=== PATIENT | female | born 1935 | race Caucasian/White ===

== ENCOUNTER → 2019-04-12 | Outpatient (CLI) | payer MEDICARE ==
--- NOTE | 2019-04-12 20:44 | CONS ---
CONSULTATION REASON FOR EVALUATION: Feeling sleepy all the time and forgetful. This is an 83-year-old female patient who has been noted to be progressively more forgetful and she has been falling sleep frequently and for that reason, a sleep apnea evaluation was requested. She is accompanied today by her . Her daughter Stacey Briones works for [employer]. Her son is also a physician on the [place] of the [facility]. The patient reports snoring. There has been some cognitive impairment essentially in the form of memory loss. She is also falling asleep easily despite averaging around 8-9 hours of sleep. Typically, the patient was bed around 11:30 pm and wakes up between 8 and 8:30 am in the morning. When she wakes up, she is a bit tired and sleepy and she can fall asleep and take naps if she is allowed to do so. No witnessed apneas. She denies waking up gasping for air or choking sensation. No nocturia. No grinding of the teeth. No sleepwalking or sleep talking. No parasomnias. No sleep paralysis, hallucinations or cataplexy. No history of head trauma. No history of meningitis. There is positive history of depression. No recent weight gain or weight loss. The patient looks quite thin and she carries a BMI of 19.7. Nevertheless, on evaluation, she has an overbite with a Mallampati class 4. PAST MEDICAL HISTORY: 1. Cognitive impairment. 2. Memory loss. 3. Depression. 4. Hyperlipidemia. 5. Hypertension. 6. Cataract. PAST SURGICAL HISTORY: Hysterectomy, cholecystectomy, wrist surgery, shoulder surgery and elbow surgery for dislocated elbow. DRUG ALLERGIES: Drug allergies are not known. SHE HAS BEEN ALLERGIC TO FABRIC SOFTENERS. SOCIAL HISTORY: The patient is a nonsmoker. No history of alcohol. No history of IV drugs. She lives with her in [facility]. MEDICATION LIST: Includes Fosamax 70 mg once weekly. Aspirin 81 mg p.o. daily. Lipitor 20 mg p.o. daily, calcium with vitamin D one tablet a day. Centrum Silver. Metoprolol 25 mg p.o. daily, nitroglycerin 0.4 mg on a p.r.n. basis and vitamin D3 1000 units daily. SOCIAL HISTORY: The patient is a nonsmoker. No history of alcohol. No history of IV drugs. REVIEW OF SYSTEMS: 14-point review of system was done. Positive findings are mentioned above in the history of present illness. The patient is a loud snorer. She does not have any dreams, hallucinations or sleep paralysis. No history of any cataplexy. She wakes up a few times in the middle of the night and she is able to go back to sleep without any major difficulty. She prefers to sleep on her side. She does take naps. Typically the nap is around half to 1 hour at around 3 to 4 pm. She does not have any vivid dreams. She drinks caffeine in moderation. No recent weight gain or weight loss. PHYSICAL EXAMINATION: BP is 131/84, pulse 60, respirations 16, temperature 98.1. Saturation 97% on room air. Height is 5 feet, 2 inches, weight is 108. BMI is 19.7, neck size 12. Her current Casey score is at 10. General appearance calm comfortable. HEENT atraumatic normocephalic. Neck is supple. No JVD. No goiter or neck masses. There is an overbite with a Mallampati class 4. LUNGS: Clear to auscultation. HEART sounds are regular rate and rhythm. Normal S1, S2. No S3, S4. No murmurs. ABDOMEN is soft, nontender. No organomegaly. EXTREMITIES: No edema. No cyanosis or clubbing. NEUROLOGICALLY: The patient is alert x3. There is some memory impairment. No signs of any dementia on today's evaluation. PSYCHIATRIC history is positive for depression. SKIN negative for wounds or ulceration. IMPRESSION: 1. Hypersomnia with an Casey score of 10. The patient also has some cognitive and memory impairment. Possibility of obstructive sleep apnea is being entertained as the patient has somewhat anatomic features to suggest that we including an overbite and significant crowded posterior pharynx with a Mallampati class 4. Never the less, she is a thin woman who carries a BMI of 19.7. 2. Snoring. 3. Memory loss. 4. Depression. 5. Hyperlipidemia. 6. Hypertension. PLAN: 1. I had a lengthy discussion with the patient. 2. She will be asked to sleep on her side with the head of bed elevated. 3. With a polysomnogram to rule out any sleep breathing disorder that may be contributing to this patient's tiredness, fatigue and sleepiness and cognitive impairment. 4. We will continue to follow. MMODL / IJN: [id number] /
== END | disposition home or self-care (01) ==
LOC: SLEEP 14:20
PROVIDERS: ATTEND Internal Medicine Critical Care Medicine
DX: G47.10 Hypersomnia, unspecified (principal); G31.84 Mild cognitive impairment of uncertain or unknown etiology; R06.83 Snoring; F32.9 Major depressive disorder, single episode, unspecified; E78.5 Hyperlipidemia, unspecified; I10 Essential (primary) hypertension; Z79.82 Long term (current) use of aspirin; Z79.899 Other long term (current) drug therapy
CPT/HCPCS: 99211

== ENCOUNTER → 2019-08-09 | Outpatient (CLI) | payer MEDICARE ==
--- NOTE | 2019-08-09 16:06 | PN ---
PROGRESS NOTE This is an 83-year-old female patient who is seeing me back in followup regarding her sleep apnea. The patient was diagnosed having obstructive sleep apnea with an AHI of 16.7, worse during REM sleep with an AHI of 40.5, and the patient was treated with a CPAP pressure of 7 cm of water. She is using the AirFit P10 nose pillow, extra-small. On today's evaluation the patient is feeling great. Her tells me that her sleep quality has improved, snoring has been eliminated, and she feels much more awake and alert during the day. Her consciousness and her memory have also improved. She is much more alert and attentive during the day. I checked the compliance data on her CPAP machine. The patient is at a pressure of 7 cm of water. She is averaging around 8.3 hours of CPAP use per night. Her leak is 11 L/minute and her AHI is down to 4.7. She is being successfully treated and she has no complaints. Her [place] score is down to 5. REVIEW OF SYSTEMS: Fourteen-point review of systems was done. Positive findings were all mentioned above in the history of present illness. In general, the patient's hypersomnia tiredness and fatigue have improved. PHYSICAL EXAMINATION: HER CURRENT VITALS: BP 142/66, pulse 56, respirations 16, temperature 98.0. Weight is 109. Saturation 99% on room air. GENERAL APPEARANCE: Calm, comfortable. HEAD: Atraumatic, normocephalic. NECK: Supple. No JVD. No goiter or neck masses. LUNGS: Clear to auscultation. HEART: Heart sounds are regular rate and rhythm. Normal S1, S2. No S3, S4. No murmurs. ABDOMEN: Soft, nontender. No organomegaly. EXTREMITIES: No edema. No cyanosis or clubbing. NEUROLOGIC: Alert and oriented x3. No focal neurological deficit. PSYCHIATRIC: Negative for anxiety or depression for now. IMPRESSION: 1. Symptomatic obstructive sleep apnea with apnea/hypopnea index of 16, worse during REM. The patient is successfully treated with a CPAP pressure of 7. 2. Hypersomnia, improved with CPAP therapy. Current [place] score is down to 5. 3. Cognitive impairment/memory impairment, improved. 4. Depression. 5. Hyperlipidemia. 6. Hypertension. PLAN: 1. Encourage using the CPAP at the same level of pressure, which is 7 cm of water. 2. Continue using the AirFit P10 nose pillows. 3. Sleep hygiene measures are appropriate. 4. The patient is being successfully treated. We will continue to follow up and will make further recommendations based on her progress. Her treatment is successful for now. See me back in a year's time in followup. MMODL / IJN: [id number] /
== END ==
LOC: SLEEP 13:36
PROVIDERS: ATTEND Internal Medicine Critical Care Medicine
DX: G47.33 Obstructive sleep apnea (adult) (pediatric) (principal); F32.9 Major depressive disorder, single episode, unspecified; E78.5 Hyperlipidemia, unspecified; I10 Essential (primary) hypertension; G31.84 Mild cognitive impairment of uncertain or unknown etiology

== ENCOUNTER → 2019-08-30 | Outpatient (CLI) | payer MEDICARE ==
--- NOTE | 2019-08-30 13:23 | US ---
EXAMINATION TYPE: US axilla RT DATE OF EXAM: 08/30/2019 COMPARISON: NONE CLINICAL HISTORY: R22.31 AXILLARY MASS. Palpable lump right axilla x 5-10 yrs TECHNIQUE/FINDINGS: Targeted grayscale and color ultrasound were performed at the area of the palpable abnormality within the right axilla. In area of pt's palpable within right axilla there is a cystic lesion measuring 1.8 x 0.5 x 0.9 cm. This is avascular and well-circumscribed. Increased through transmission is seen confirming cystic n ature. This is seen just deep to the skin surface and is in the subcutaneous fat, adjacent to muscula ture. IMPRESSION: Elongated subcutaneous cystic lesion appears simple and likely benign. This has been pre sent for 5-10 years per patient history. Subcutaneous sebaceous cyst is possible. If there is clinica l interval growth repeat imaging could be performed.
--- NOTE | 2019-08-30 13:55 | MM ---
Reason for exam: screening (asymptomatic). Last mammogram was performed 1 year and 6 months ago. History: Patient is postmenopausal and history of other cancer. Family history of breast cancer in daughter. Physical Findings: A clinical breast exam by your physician is recommended on an annual basis and results should be correlated with mammographic findings. MG 3D Screening Mammo W/Cad Bilateral CC and MLO view(s) were taken. Prior study comparison: February 16, 2018, mammogram. September 02, 2016, mammogram. The breast tissue is extremely dense which could obscure a lesion on mammography. Benign appearing calcifications in the left breast. Subtle right central upper right middle depth architectural distortion. ASSESSMENT: Incomplete: need additional imaging evaluation, BI-RAD 0 RECOMMENDATION: Special view mammogram of the right breast. If lesion persists on supplemental views, image directed ultrasound is recommended. [facility] will attempt to contact patient to return for supplemental views and ultrasound if indicated.
--- NOTE | 2019-08-31 07:55 | MM ---
Reason for exam: additional evaluation requested from abnormal screening. History: Patient is postmenopausal and history of other cancer. Family history of breast cancer in daughter. Physical Findings: Nurse did not find any significant physical abnormalities on exam. MG 3D Work Up W/Cad RT Spot compression CC, spot compression MLO, and ML view(s) were taken of the right breast. Prior study comparison: February 16, 2018, mammogram. September 02, 2016, mammogram. The breast tissue is extremely dense which could obscure a lesion on mammography. There are stable benign appearing left calcifications. 6mm right focal asymmetry 5-6cm from nipple of the central, slightly medial upper right breast. Persists on additional images. These results were verbally communicated with the patient and result sheet given to the patient on 08/30/19. ASSESSMENT: Incomplete: need additional imaging evaluation, BI-RAD 0 RECOMMENDATION: Ultrasound of the right breast.
--- NOTE | 2019-08-31 07:56 | USB ---
Reason for exam: additional evaluation requested from abnormal screening. History: Patient is postmenopausal and history of other cancer. Family history of breast cancer in daughter. US Breast Workup Limited RT Right limited breast ultrasound including focal area of concern, retroareolar and axilla demonstrates no cystic or solid lesion seen. No sonographic correlate. Extremely dense tissue throughout. No solid or cystic mass. These results were verbally communicated with the patient and result sheet given to the patient on 08/30/19. ASSESSMENT: Probably benign, BI-RAD 3 RECOMMENDATION: Follow-up diagnostic mammogram of the right breast in 6 months. MRI or contrast enhanced mammogram would additionally be recommended.
== END | disposition home or self-care (01) ==
LOC: RADUSWWP 12:55
PROVIDERS: ATTEND Internal Medicine
DX: Z12.31 Encounter for screening mammogram for malignant neoplasm of breast (principal); R92.8 Other abnormal and inconclusive findings on diagnostic imaging of breast; R22.31 Localized swelling, mass and lump, right upper limb
CPT/HCPCS: 77067; 77065; 77063; 76882; 76642; G0279; 77061

== ENCOUNTER → 2020-09-18 | Outpatient (CLI) | payer MEDICARE ==
--- NOTE | 2020-09-18 16:31 | PN ---
PROGRESS NOTE This patient has obstructive sleep apnea with an AHI of 16.7, and she is coming in for an annual check. She continues to be on CPAP pressure of 7 cm of water. Treatment is still successful. The patient has been averaging around 7.8 hours of CPAP use per night and based on a 30 day compliancy, her CPAP use for more than 4 hours is above 95%. She is still using AirFit 10 extra-small nasal pillows. Her AHI while on treatment is down to 2.6 and her leak is in order of 11 L/minute. No new onset medical problems and comorbidities and her weight is up by few pounds in order of 6 pounds since last evaluation. No other complaints. Treatment continues to be quite successful. Her memory and concentration and her daily alertness is all improved. REVIEW OF SYSTEMS: Fourteen-point review of system was done and positive findings are mentioned in history of present illness. PHYSICAL EXAMINATION: BP is 145/79, pulse 62, respirations 16, temperature 97.5 saturation 95% on room air. Height is 5, 2, weight is 115 and BMI is 20.8. GENERAL APPEARANCE: Calm, comfortable. HEAD: Atraumatic, normocephalic. NECK: Supple. No JVD. No goiter or neck mass. LUNGS: Diminished, otherwise clear. HEART: Heart sounds are regular rate and rhythm, normal S1, S2. No S3, S4. No murmurs. ABDOMEN: Soft, nontender, no organomegaly. EXTREMITIES: No edema, no cyanosis or clubbing. NEUROLOGIC: Awake and alert, there is no focal neurological deficit. IMPRESSION: 1. MINH, moderate severity. AHI of 16, currently successfully treated with a CPAP pressure of 7 cm of water. The patient is extremely compliant. 2. Hypersomnia, recovered. 3. Depression. 4. Hyperlipidemia. 5. Hypertension. PLAN: 1. No need for adjustments. Keep the CPAP pressure at 7 cm of water. 2. Keep the same mask interface which is an AirFit P10 extra-small nasal pillows. 3. Treatment is successful. Encourage weight loss. Implement good sleep hygiene measures. Will see me back in a year's time in followup, earlier if needed. For now, her condition is stable. MMODL / IJN: [id number] /
== END | disposition home or self-care (01) ==
LOC: SLEEP 13:53
PROVIDERS: ATTEND Internal Medicine Critical Care Medicine
DX: G47.33 Obstructive sleep apnea (adult) (pediatric) (principal); F32.9 Major depressive disorder, single episode, unspecified; E78.5 Hyperlipidemia, unspecified; I10 Essential (primary) hypertension; Z99.89 Dependence on other enabling machines and devices

== ENCOUNTER → 2021-10-29 | Outpatient (CLI) | payer MEDICARE ==
--- NOTE | 2021-10-29 15:22 | PN ---
PROGRESS NOTE This is an 86-year-old female patient with known history of obstructive sleep apnea. The patient is coming in for an annual check. Her baseline AHI is 16.7. I note that the patient's compliance has gone down; and over the past 30 days the patient has utilized her machine half of the time and she has achieved around 7 hours of sleep on CPAP on average. The reason for the lower compliance is the soreness in her nostril that has been caused by the AirFit extra-small nasal pillows. The patient is wondering if there is any other alternative than the AirFit P10. Otherwise she is doing well. While on treatment, the patient's leak is minimal at around 22 L and she has averaged around 7 hours and her AHI is down to 2.0. No new-onset medical problems or comorbidities. She is committed and she wants to go back to using her CPAP therapy. No cough or sputum production. No chest pain, shortness of breath. No major hypersomnia or sleepiness on the days that the patient uses her machine. REVIEW OF SYSTEMS: Fourteen-point review of systems was done. Positive findings are all mentioned in history of present illness. PHYSICAL EXAMINATION: BP is 155/67, pulse 62, respirations 16, temperature 97.8, saturation 99% on room air. Height is 5 feet 2 inches, weight is 118. BMI is 21.5. GENERAL APPEARANCE: Calm, comfortable. No acute distress. HEAD: Atraumatic, normocephalic. Neck is supple. No JVD. No goiter or neck masses. Mallampati class IV. LUNGS: Clear to auscultation. Heart sounds are regular rate and rhythm. Normal S1, S2. No S3, S4. No murmurs. ABDOMEN: Soft, nontender. EXTREMITIES: No edema. No cyanosis or clubbing. NEUROLOGIC: Awake and alert. There is no focal neurological deficit. PSYCHIATRIC: Negative for anxiety or depression. IMPRESSION: 1. Obstructive sleep apnea; AHI of 16.7, currently on CPAP therapy at a pressure of 7 cm of water. 2. Poor compliancy on CPAP due to irritation and soreness created by the nasal pillows. 3. Chronic hypersomnia. 4. Depression. 5. Hyperlipidemia. 6. Hypertension. PLAN: Continue CPAP therapy at the same level of pressure, which is 7 cm of water, and offer the patient an AirFit N30i nasal mask. This was used in the office and it was fitted and the patient achieved adequate comfort. She feels that she is going to be able to use this new mask over her older nasal pillow. I am hoping that with this mask change the patient will be able to become more compliant. I will see her back in a year's time in followup. Prescriptions will be given out if she decides that she wants to continue with the AirFit N30i small-sized nasal mask. Otherwise, no other new complaints for now. MMODL / IJN: [id number] /
== END ==
LOC: SLEEP 13:21
PROVIDERS: ATTEND Internal Medicine Critical Care Medicine
DX: G47.33 Obstructive sleep apnea (adult) (pediatric) (principal); F32.A Depression, unspecified; E78.5 Hyperlipidemia, unspecified; I10 Essential (primary) hypertension; Z99.89 Dependence on other enabling machines and devices; Z88.2 Allergy status to sulfonamides

== ENCOUNTER 2021-11-14 03:34 | Emergency (ER) | payer MEDICARE ==
--- NOTE | 2021-11-14 03:46 | ED ---
Fall HPI - General Stated Complaint: Fall Time Seen by Provider: 11/14/21 03:44 Source: RN notes reviewed, old records reviewed, Caregiver Mode of arrival: EMS Limitations: no limitations - History of Present Illness Initial Comments: This is an 86-year-old female presents here today after a fall. Weakness fall probably syncopal and fall. Patient has had similar event just last week and states at times when she is moving or walking she feels lightheaded and dizzy. No chest pain or shortness of breath no current symptoms now aside from back pain. Patient was unable to get up on her own at home her daughter came over and came over also were unable to get her up and patient presents to ER by EMS. Currently no complaints of anything aside from pain in her MD Complaint: fall -: hour(s) (3) Fall From: standing When Fall Occurred: 1-3 hours [employer]STE WORK[employer] Fall Witnessed: yes, by family Place Fall Occurred: home Loss of Consciousness: none Prolonged Down Time?: no Symptoms Prior to Fall: none Location: back Severity: moderate Severity scale (1-10): 4 Quality: sharp Context: tripped/slipped, other (May have passed out) Associated Symptoms: denies - Related Data Home Medications Medication Instructions Recorded Confirmed No Known Home Medications 10/25/14 10/25/14 Allergies Allergy/AdvReac Type Severity Reaction Status Date / Time Sulfa (Sulfonamide Allergy Unknown Verified 10/25/14 17:09 Antibiotics) Review of Systems ROS Statement: Those systems with pertinent positive or pertinent negative responses have been documented in the HPI. ROS Other: All systems not noted in ROS Statement are negative. Past Medical History Past Medical History: COPD History of Any Multi-Drug Resistant Organisms: None Reported Past Surgical History: Appendectomy, Cholecystectomy, Hysterectomy Past Anesthesia/Blood Transfusion Reactions: No Reported Reaction Past Psychological History: No Psychological Hx Reported Past Alcohol Use History: None Reported Past Drug Use History: None Reported - Past Family History Father Family Medical History: Cancer, Myocardial Infarction ([place]) Mother Family Medical History: Osteoarthritis (OA) General Exam General appearance: alert, in no apparent distress Head exam: Present: atraumatic, normocephalic, normal inspection Eye exam: Present: normal appearance, PERRL, EOMI. Absent: scleral icterus, conjunctival injection, periorbital swelling ENT exam: Present: normal exam, mucous membranes moist Neck exam: Present: normal inspection. Absent: tenderness, meningismus, lymphadenopathy Respiratory exam: Present: normal lung sounds bilaterally. Absent: respiratory distress, wheezes, rales, rhonchi, stridor Cardiovascular Exam: Present: regular rate, normal rhythm, normal heart sounds. Absent: systolic murmur, diastolic murmur, rubs, gallop, clicks GI/Abdominal exam: Present: soft, normal bowel sounds. Absent: distended, tenderness, guarding, rebound, rigid Extremities exam: Present: normal inspection, full ROM, normal capillary refill. Absent: tenderness, pedal edema, joint swelling, calf tenderness Back exam: Present: normal inspection Neurological exam: Present: alert, oriented X3, CN II-XII intact Psychiatric exam: Present: normal affect, normal mood Skin exam: Present: warm, dry, intact, normal color. Absent: rash Course Vital Signs 11/14/21 03:38 Temperature 96.8 F L Pulse Rate 70 Respiratory 16 Rate Blood Pressure 172/77 O2 Sat by Pulse 97 Oximetry - Reevaluation(s) Reevaluation #1: 11/14/21 05:56 Records records reviewed Reevaluation #2: 11/14/21 05:56 Patient has no significant current complaints 11/14/21 05:56 No recurrent syncope here in the ER Reevaluation #3: 11/14/21 05:56 Patient family informed of results and questions answered Reevaluation #4: 11/14/21 05:56 Patient currently comfortable for discharge able to ambulate Medical Decision Making - Medical Decision Making 86 female to the ER for evaluation status post fall trip and fall with back pain. No significant findings here in the ER, patient can be discharged home - Lab Data Result diagrams: 11/14/21 04:22 11/14/21 04:22 Lab Results 11/14/21 11/14/21 11/14/21 Range/Units 04:22 04:22 04:22 WBC 12.1 H (3.8-10.6) k/uL RBC 3.96 (3.80-5.40) m/uL Hgb 12.3 (11.4-16.0) gm/dL Hct 38.3 (34.0-46.0) % MCV 96.6 (80.0-100.0) fL MCH 31.0 (25.0-35.0) pg MCHC 32.1 (31.0-37.0) g/dL RDW 13.0 (11.5-15.5) % Plt Count 147 L (150-450) k/uL MPV 8.8 Neutrophils % 86 % Lymphocytes % 8 % Monocytes % 4 % Eosinophils % 1 % Basophils % 0 % Neutrophils # 10.4 H (1.3-7.7) k/uL Lymphocytes # 1.0 (1.0-4.8) k/uL Monocytes # 0.5 (0-1.0) k/uL Eosinophils # 0.1 (0-0.7) k/uL Basophils # 0.0 (0-0.2) k/uL PT 10.4 (9.0-12.0) sec INR 1.0 (<1.2) APTT 24.0 (22.0-30.0) sec Sodium 137 (137-145) mmol/L Potassium 4.6 (3.5-5.1) mmol/L Chloride 105 (98-107) mmol/L Carbon Dioxide 28 (22-30) mmol/L Anion Gap 4 mmol/L BUN 31 H (7-17) mg/dL Creatinine 0.62 (0.52-1.04) mg/dL Est GFR (CKD-EPI)AfAm >90 (>60 ml/min/1.73 sqM) Est GFR (CKD-EPI)NonAf 82 (>60 ml/min/1.73 sqM) Glucose 121 H (74-99) mg/dL Plasma Lactic Acid Delfin (0.7-2.0) mmol/L Calcium 9.2 (8.4-10.2) mg/dL Phosphorus 4.1 (2.5-4.5) mg/dL Magnesium 2.2 (1.6-2.3) mg/dL Total Bilirubin 0.4 (0.2-1.3) mg/dL AST 45 H (14-36) U/L ALT 28 (4-34) U/L Alkaline Phosphatase 136 H (38-126) U/L Troponin I (0.000-0.034) ng/mL NT-Pro-B Natriuret Pep pg/mL Total Protein 6.6 (6.3-8.2) g/dL Albumin 3.9 (3.5-5.0) g/dL 11/14/21 11/14/21 11/14/21 Range/Units 04:22 04:22 04:22 WBC (3.8-10.6) k/uL RBC (3.80-5.40) m/uL Hgb (11.4-16.0) gm/dL Hct (34.0-46.0) % MCV (80.0-100.0) fL MCH (25.0-35.0) pg MCHC (31.0-37.0) g/dL RDW (11.5-15.5) % Plt Count (150-450) k/uL MPV Neutrophils % % Lymphocytes % % Monocytes % % Eosinophils % % Basophils % % Neutrophils # (1.3-7.7) k/uL Lymphocytes # (1.0-4.8) k/uL Monocytes # (0-1.0) k/uL Eosinophils # (0-0.7) k/uL Basophils # (0-0.2) k/uL PT (9.0-12.0) sec INR (<1.2) APTT (22.0-30.0) sec Sodium (137-145) mmol/L Potassium (3.5-5.1) mmol/L Chloride (98-107) mmol/L Carbon Dioxide (22-30) mmol/L Anion Gap mmol/L BUN (7-17) mg/dL Creatinine (0.52-1.04) mg/dL Est GFR (CKD-EPI)AfAm (>60 ml/min/1.73 sqM) Est GFR (CKD-EPI)NonAf (>60 ml/min/1.73 sqM) Glucose (74-99) mg/dL Plasma Lactic Acid Delfin 0.8 (0.7-2.0) mmol/L Calcium (8.4-10.2) mg/dL Phosphorus (2.5-4.5) mg/dL Magnesium (1.6-2.3) mg/dL Total Bilirubin (0.2-1.3) mg/dL AST (14-36) U/L ALT (4-34) U/L Alkaline Phosphatase (38-126) U/L Troponin I <0.012 (0.000-0.034) ng/mL NT-Pro-B Natriuret Pep 346 pg/mL Total Protein (6.3-8.2) g/dL Albumin (3.5-5.0) g/dL - EKG Data -: EKG Interpreted by Me (EKG shows rate 71 150 QRS 140 QTc 519) - Radiology Data Radiology results: report reviewed (CT brain C-spine chest and pelvis x-ray are negative for traumatic injury), image reviewed Disposition Clinical Impression: Fall Disposition: HOME SELF-CARE Condition: Good Instructions (If sedation given, give patient instructions): Fall Prevention for Older Adults (ED) Is patient prescribed a controlled substance at d/c from ED?: No Referrals: Fely Contreras MD [Primary Care Provider] - 1-2 days
[2021-11-14 03:51] VITALS: PULSE 70; TEMP 96.8
[2021-11-14] MEDS ORDERED: SODIUM CHLORIDE 0.9% 1,000 ML IV STA (04:05)
[2021-11-14] MEDS ORDERED: SODIUM CHLORIDE 0.9% 500 ML 500 ML IV STA (04:05)
[2021-11-14 04:35] LABS: Basophils % (A) 0 %; Eosinophils # (A) 0.1 k/uL (0-0.7); Eosinophils % (A) 1 %; HCT 38.3 % (34.0-46.0); HGB 12.3 gm/dL (11.4-16.0); Lymphocytes % (A) 8 %; MCHC 32.1 g/dL (31.0-37.0); MCV 96.6 fL (80.0-100.0); Mean Platelet Volume 8.8; Monocytes # (A) 0.5 k/uL (0-1.0); Monocytes % (A) 4 %; Neutrophils # (A) 10.4 k/uL (1.3-7.7); Neutrophils % (A) 86 %; Platelet Count 147 k/uL (150-450); RBC 3.96 m/uL (3.80-5.40); WBC 12.1 k/uL (3.8-10.6)
[2021-11-14 04:46] LABS: ALT 28 U/L (4-34); AST 45 U/L (14-36); African American GFR (CKD) >90 (>60 ml/min/1.73 sqM); Albumin 3.9 g/dL (3.5-5.0); Alkaline Phosphatase 136 U/L (38-126); Anion Gap 4 mmol/L; Blood Urea Nitrogen 31 mg/dL (7-17); Calcium 9.2 mg/dL (8.4-10.2); Carbon Dioxide 28 mmol/L (22-30); Chloride 105 mmol/L (98-107); Glucose 121 mg/dL (74-99); Magnesium 2.2 mg/dL (1.6-2.3); Non-African American GFR(CKD) 82 (>60 ml/min/1.73 sqM); Phosphorus 4.1 mg/dL (2.5-4.5); Sodium 137 mmol/L (137-145); Total Bilirubin 0.4 mg/dL (0.2-1.3); Total Protein 6.6 g/dL (6.3-8.2)
[2021-11-14 04:47] LABS: Potassium 4.6 mmol/L (3.5-5.1)
--- NOTE | 2021-11-14 04:51 | CT ---
EXAMINATION TYPE: CT brain katerin dunham DATE OF EXAM: 11/14/2021 COMPARISON: 10/25/2014 HISTORY: Fall CT DLP: 1399.3 mGycm Automated exposure control for dose reduction was used. Images of the brain and cervical spine obtained without contrast. FINDINGS: There is cerebral cortical atrophy. There is patchy hypodensity in the periventricular white matter. There is no mass effect or midline shift. There is no sign of intracranial hemorrhage. The calvarium is intact. Skull base is intact. There is normal aeration of the mastoid sinuses. Cervical vertebra have normal alignment. There is narrowing at C5-6 disc space with spur formation. T here is no compression fracture. There is mild hypertrophic cervical facet arthropathy in the mid and lower cervical spine. IMPRESSION: Cerebral atrophy and chronic small vessel ischemia. No acute intracranial abnormality. No change. Spondylotic changes at C5-6. No fracture. No change.
--- NOTE | 2021-11-14 04:52 | XR ---
EXAMINATION TYPE: XR chest 1V DATE OF EXAM: 11/14/2021 COMPARISON: NONE HISTORY: Fall. Trauma. Pain. TECHNIQUE: Single view FINDINGS: Heart is normal. Lungs are clear of infiltrate. There is no heart failure. There is plate w ith screws fixing fracture of the proximal left humerus. There is no pleural effusion or pneumothorax . IMPRESSION: No active cardiopulmonary disease.
--- NOTE | 2021-11-14 04:54 | XR ---
EXAMINATION TYPE: XR pelvis AP view DATE OF EXAM: 11/14/2021 COMPARISON: NONE HISTORY: Fall. Pain. TECHNIQUE: Single view FINDINGS: Pelvic ring is intact proximal femurs are intact. There is no evidence of hip fracture. Hip joint spaces are fairly normal. Sacroiliac joints are intact. IMPRESSION: No acute abnormality of the pelvis.
[2021-11-14 05:16] LABS: Prothrombin Time 10.4 sec (9.0-12.0)
[2021-11-14 06:30] VITALS: BP 167/76; RESP 18
== END 2021-11-14 06:29 | disposition home or self-care (01) ==
LOC: EC 03:34
DX: M54.9 Dorsalgia, unspecified (principal); J44.9 Chronic obstructive pulmonary disease, unspecified; W01.0XXA Fall on same level from slipping, tripping and stumbling without subsequent striking against object, initial encounter; Y92.009 Unspecified place in unspecified non-institutional (private) residence as the place of occurrence of the external cause
CPT/HCPCS: 36415; 70450; 71045; 72125; 72170; 80053; 83605; 83735; 83880; 84100; 84484; 85025; 85610; 85730; 93005; 99285

== ENCOUNTER 2023-11-26 00:24 | Inpatient (IN) | payer MEDICARE ==
--- NOTE | 2023-11-26 01:16 | ED ---
Fall HPI - General Chief Complaint: Fall Stated Complaint: fall Time Seen by Provider: 11/26/23 00:32 Source: EMS Mode of arrival: EMS - History of Present Illness Initial Comments: This patient is an 88-year-old woman who presents to have evaluation after she had a fall at home. Patient was in the kitchen and states she tripped falling and striking her left hip and left forehead. There may have been brief loss consciousness patient is not sure. She now is complaining mainly of left hip pain preventing walking. Some left headache as well. She declined analgesic at initial history and physical exam. MD Complaint: fall Onset/Timin -: hour(s) Fall From: standing When Fall Occurred: 4-6 hours TEXT TRANSCRIBER Fall Witnessed: yes, by family Place Fall Occurred: home Loss of Consciousness: none Prolonged Down Time?: no Symptoms Prior to Fall: none Location - Extremities: Left: Thigh Severity: moderate Quality: sharp Context: tripped/slipped - Related Data Home Medications Medication Instructions Recorded Confirmed Atorvastatin [Lipitor] 20 mg PO DAILY 11/26/23 11/26/23 Memantine HCl [Memantine HCl ER] 21 mg PO DAILY 11/26/23 11/26/23 Previous Rx's Medication Instructions Recorded Aspirin 81 mg PO DAILY tab 11/30/23 Famotidine [Pepcid] 20 mg PO DAILY tab 11/30/23 Ferrous Sulfate [Iron (65 MG 325 mg PO BID-W/MEALS tab 11/30/23 Elemental)] Metoprolol Succinate (ER) [Toprol 12.5 mg PO DAILY tab 11/30/23 XL] Acetaminophen Tab [Tylenol] 650 mg PO Q6H #32 tab 12/01/23 Enoxaparin [Lovenox] 30 mg SQ DAILY #28 each 12/01/23 Allergies Allergy/AdvReac Type Severity Reaction Status Date / Time Sulfa (Sulfonamide Allergy Unknown Verified 11/27/23 12:12 Antibiotics) Review of Systems ROS Statement: Those systems with pertinent positive or pertinent negative responses have been documented in the HPI. ROS Other: All systems not noted in ROS Statement are negative. Constitutional: Denies: fever, chills, weakness Eyes: Denies: vision change Respiratory: Denies: cough, dyspnea, hemoptysis Cardiovascular: Denies: chest pain, palpitations, edema, syncope Gastrointestinal: Denies: abdominal pain, nausea, vomiting, diarrhea Genitourinary: Denies: dysuria, hematuria Musculoskeletal: Reports: as per HPI, arthralgia. Denies: back pain Skin: Denies: rash Neurological: Reports: headache. Denies: weakness, numbness, confusion Hematological/Lymphatic: Reports: easy bleeding (Taking Plavix) Past Medical History Past Medical History: COPD History of Any Multi-Drug Resistant Organisms: None Reported Past Surgical History: Appendectomy, Cholecystectomy, Hysterectomy Past Anesthesia/Blood Transfusion Reactions: No Reported Reaction Past Psychological History: No Psychological Hx Reported Past Alcohol Use History: None Reported Past Drug Use History: None Reported - Past Family History Father Family Medical History: Cancer, Myocardial Infarction ([place]) Mother Family Medical History: Osteoarthritis (OA) General Exam Limitations: no limitations, altered mental status General appearance: alert, in no apparent distress Head exam: Present: normocephalic, other (Moderate sized left forehead hematoma with tenderness.) Eye exam: Present: normal appearance, PERRL, EOMI. Absent: scleral icterus, conjunctival injection, nystagmus Neck exam: Present: normal inspection, full ROM. Absent: tenderness Respiratory exam: Present: normal lung sounds bilaterally. Absent: respiratory distress, wheezes, rales, rhonchi, stridor, chest wall tenderness, accessory muscle use Cardiovascular Exam: Present: regular rate, normal rhythm, normal heart sounds. Absent: systolic murmur, diastolic murmur, rubs, gallop GI/Abdominal exam: Present: soft. Absent: distended, tenderness, guarding, rebound, rigid, mass Extremities exam: Present: normal inspection, tenderness, normal capillary refill. Absent: full ROM, pedal edema, calf tenderness Left Hip exam: Present: tenderness. Absent: full ROM Knee exam: Present: normal inspection, full ROM. Absent: tenderness, swelling Lower Leg exam: Present: normal inspection, full ROM. Absent: tenderness, swelling Ankle exam: Present: normal inspection, full ROM. Absent: tenderness, swelling Foot/Toe exam: Present: normal inspection, full ROM. Absent: tenderness, swelling Neurovascular tendon exam: Present: no vascular compromise. Absent: pulse deficit, abnormal cap refill, motor deficit, sensory deficit Back exam: Present: normal inspection. Absent: CVA tenderness (R), CVA tenderness (L), vertebral tenderness Neurological exam: Present: alert, oriented X3, CN II-XII intact. Absent: motor sensory deficit Skin exam: Present: warm, dry, intact, normal color. Absent: rash Course Vital Signs 11/26/23 11/26/23 11/26/23 00:27 03:14 04:00 Temperature 98.4 F Pulse Rate 90 100 101 H Respiratory 18 16 18 Rate Blood Pressure 125/63 121/76 114/65 O2 Sat by Pulse 93 L 94 L 100 Oximetry Fraction of Inspired Oxygen (FIO2) 11/26/23 11/26/23 11/26/23 04:30 05:00 14:21 Temperature Pulse Rate 93 105 H 92 Respiratory 14 19 18 Rate Blood Pressure 108/64 120/74 138/78 O2 Sat by Pulse 97 98 91 L Oximetry Fraction of 2 Inspired Oxygen (FIO2) 11/26/23 11/26/23 11/26/23 18:46 19:43 20:56 Temperature 98 F 99.2 F Pulse Rate 91 79 77 Respiratory 18 16 12 Rate Blood Pressure 131/87 137/56 137/56 O2 Sat by Pulse 95 97 97 Oximetry Fraction of Inspired Oxygen (FIO2) 11/26/23 23:37 Temperature Pulse Rate 95 Respiratory 16 Rate Blood Pressure 136/85 O2 Sat by Pulse 96 Oximetry Fraction of Inspired Oxygen (FIO2) Medical Decision Making - Medical Decision Making The patient had CT of the brain that by my interpretation revealed facial h ematoma. No acute bony injury, no intracranial hemorrhage. The patient had x-ray of the pelvis and left hip that is suggestive of fracture though not diagnostic. The patient had CT of the left hip which by my interpretation does reveal impacted femoral neck fracture Patient had x-ray of the chest which is in my interpretation negative for acute infiltrate, pneumothorax, bony injury Was pt. sent in by a medical professional or institution (, PA, SENIOR MANAGER, urgent care, hospital, or long term...) When possible be specific @ -[No] Did you speak to anyone other than the patient for history (EMS, parent, family, police, friend...)? What history was obtained from this source @ -[No] Did you review nursing and triage notes (agree or disagree)? Why? @ -[I reviewed and agree with nursing and triage notes] Were old charts reviewed (outside hosp., previous admission, EMS record, old EKG, old radiological studies, urgent care reports/EKG's, long term records)? Report findings @ -[No old charts were reviewed] Differential Diagnosis (chest pain, altered mental status, abdominal pain women, abdominal pain men, vaginal bleeding, weakness, fever, dyspnea, syncope, headache, dizziness, GI bleed, back pain, seizure, CVA, palpatations, mental health, musculoskeletal)? @ -[Differential Musculoskeletal Muscular strain, contusion, ligament sprain, fracture, arthritis, septic arthritis, bursitis, cellulitis, muscle spasm, nerve compression, DVT, arterial occlusion, herpes zoster, electrolyte abnormality, tumor.... This is not meant to be in all inclusive list EKG interpreted by me (3pts min.). @ -[As above] X-rays interpreted by me (1pt min.). @ -I interpreted as above CT interpreted by me (1pt min.). @ -[I interpreted as above U/S interpreted by me (1pt. min.). @ -[None done] What testing was considered but not performed or refused? (CT, X-rays, U/S, labs)? Why? @ -[None] What meds were considered but not given or refused? Why? @ -[None] Did you discuss the management of the patient with other professionals (professionals i.e. , PA, SENIOR MANAGER, lab, RT, psych nurse, social security assessor, project economist, teacher, forest fire control officer, registered nurse hh case manager)? Give summary @ -[Case discussed with admitting physician and treatment recommendations incorporated Was smoking cessation discussed for >3mins.? @ -[No] Was critical care preformed (if so, how long)? @ -[No] Were there social determinants of health that impacted care today? How? (Homelessness, low income, unemployed, alcoholism, drug addiction, transportation, low edu. Level, literacy, decrease access to med. care, [place] [facility], rehab)? @ -[No] Was there de-escalation of care discussed even if they declined (Discuss DNR or withdrawal of care, Hospice)? DNR status @ -[No] What co-morbidities impacted this encounter? (DM, HTN, Smoking, COPD, CAD, Cancer, CVA, ARF, Chemo, Hep., AIDS, mental health diagnosis, sleep apnea, mor bid obesity)? @ -[None] Was patient admitted / discharged? Hospital course, mention meds given and route, prescriptions, significant lab abnormalities, going to OR and other pertinent info. @ -[Patient is an 88-year-old woman having ground-level fall with femoral neck fracture. She'll be admitted to have probable orthopedic repair. Undiagnosed new problem with uncertain prognosis? @ -[No] Drug Therapy requiring intensive monitoring for toxicity (Heparin, Nitro, Insulin, Cardizem)? @ -[No] Were any procedures done? @ -[No] Diagnosis/symptom? @ -[Acute fall Acute femoral neck fracture Acute facial hematoma Acute, or Chronic, or Acute on Chronic? @ -[Acute Uncomplicated (without systemic symptoms) or Complicated (systemic symptoms)? @ -Complicated Side effects of treatment? @ -[No] Exacerbation, Progression, or Severe Exacerbation? @ -[No] Poses a threat to life or bodily function? How? (Chest pain, [place], [place], pneumonia, PE, COPD, DKA, ARF, appy, cholecystitis, CVA, Diverticulitis, Homicidal, Suicidal, threat to staff... and all critical care pts) @ -[Yes, hip fracture caries significant risks of morbidity and mortality - Lab Data Result diagrams: 12/01/23 09:00 12/01/23 09:00 - EKG Data EKG shows normal: sinus rhythm, axis ([place] deviation), intervals (OH interval 148 ms, QTC 464 ms, normal. The QRS duration is 137 ms, prolonged), QRS complexes (There is an intraventricular conduction delay. Old anteroseptal infarct.) Rate: normal (Rate 100 bpm) Disposition Clinical Impression: Fall, Fracture of femoral neck, Traumatic hematoma of face Disposition: ADMITTED IP TO THIS HOSP Condition: Good Is patient prescribed a controlled substance at d/c from ED?: No
--- NOTE | 2023-11-26 01:49 | CT ---
EXAM: CT Head Without Intravenous Contrast CLINICAL HISTORY: ITS.REASON CT Reason: fall injury TECHNIQUE: Axial computed tomography images of the head/brain without intravenous contrast. CTDI is 49.1 mGy and DLP is 1095.4 mGy-cm. This CT exam was performed using one or more of the following dose reduction techniques: automated exposure control, adjustment of the mA and/or kV according to patient size, and/or use of iterative reconstruction technique. COMPARISON: No relevant prior studies available. FINDINGS: Brain: No hemorrhage or mass effect. Senescent changes Ventricles: No hydrocephalus. Bones/joints: Unremarkable. Soft tissues: Scalp swelling. Sinuses: No air fluid level. Mastoid air cells: Clear. IMPRESSION: No acute hemorrhage, hydrocephalus, or mass effect.
--- NOTE | 2023-11-26 02:12 | XR ---
EXAM: XR Left Hip With Pelvis When Performed, 2 or 3 Views CLINICAL HISTORY: XR Reason: fall injury TECHNIQUE: Two or three views of the left hip with pelvis when performed. COMPARISON: No relevant prior studies available. FINDINGS: Bones/joints: Foreshortening of the left femoral neck on the attempted AP view due to rotation. No definite acute fracture line is visible on the oblique view. The pelvis appears intact. No dislocation. Soft tissues: Soft tissue swelling over the left hip. Vasculature: Mild diffuse arterial calcification is present. Other findings: The patient is rotated to the left. IMPRESSION: Foreshortening of the left femoral neck on the attempted AP view due to rotation. No definite acute fracture line is visible on the oblique view. Consider CT to rule out fracture.
--- NOTE | 2023-11-26 02:13 | XR ---
EXAM: XR Chest, 1 View CLINICAL HISTORY: XR Reason: TRAUMA TECHNIQUE: Frontal view of the chest. COMPARISON: No relevant prior studies available. FINDINGS: Lungs: Lungs are mildly hyperinflated with slightly coarse interstitial markings suggesting mild emphysema. No acute focal infiltrate or consolidation is seen. Pleural space: Unremarkable. No pneumothorax. Heart: Unremarkable. No cardiomegaly. Mediastinum: Unremarkable. Normal mediastinal contour. Bones/joints: Mild degenerative changes throughout the thoracic spine. No acute fracture. Upper abdomen: There is no pneumoperitoneum under the diaphragm. Other findings: The patient is rotated to the left. IMPRESSION: Lungs are mildly hyperinflated with slightly coarse interstitial markings suggesting mild emphysema. No acute focal infiltrate or consolidation is seen.
[2023-11-26] MEDS ORDERED: MORPHINE SULFATE 2 MG/ML SYRINGE IV STA (03:19)
[2023-11-26] MEDS ORDERED: SODIUM CHLORIDE 0.9% 1,000 ML IV STA (03:22)
[2023-11-26] MEDS ORDERED: SODIUM CHLORIDE 0.9% 500 ML 500 ML IV STA (03:22)
[2023-11-26] MEDS ORDERED: MAG HYDROX/AL HYDROX/SIMETH 30 ML CUP PO PRN (03:23)
[2023-11-26] MEDS ORDERED: NALOXONE 0.4 MG/ML 1 ML VIAL IV PRN (03:23)
[2023-11-26] MEDS ORDERED: ONDANSETRON 4 MG/2 ML VIAL IVP PRN (03:23)
[2023-11-26] MEDS ORDERED: MORPHINE SULFATE 2 MG/ML SYRINGE IV PRN (03:23)
[2023-11-26] MEDS ORDERED: DOCUSATE 100 MG CAP PO PRN (03:23)
[2023-11-26] MEDS: SODIUM CHLORIDE 0.9% 1,000 ML IV SCH ×2 (03:46→19:52)
--- NOTE | 2023-11-26 03:54 | CT ---
EXAM: CT Left Lower Extremity Without Intravenous Contrast, Hip CLINICAL HISTORY: CT Reason: L hip fracture TECHNIQUE: Axial computed tomography images of the left hip without intravenous contrast. CTDI is 10.3 mGy and DLP is 361.7 mGy-cm. This CT exam was performed using one or more of the following dose reduction techniques: automated exposure control, adjustment of the mA and/or kV according to patient size, and/or use of iterative reconstruction technique. COMPARISON: No relevant prior studies available. FINDINGS: Bones/joints: There is an acute impacted fracture of the subcapital left femoral neck. No dislocation. Soft tissues: Unremarkable. Vasculature: Mild diffuse arterial calcification. IMPRESSION: There is an acute impacted fracture of the subcapital left femoral neck.
[2023-11-26 03:57] LABS: Basophils % (A) 0 %; Eosinophils % (A) 0 %; HCT 36.5 % (34.0-46.0); HGB 11.8 gm/dL (11.4-16.0); Lymphocytes # (A) 0.5 k/uL (1.0-4.8); Lymphocytes % (A) 5 %; MCH 31.9 pg (25.0-35.0); MCHC 32.5 g/dL (31.0-37.0); MCV 98.3 fL (80.0-100.0); Mean Platelet Volume 10.1; Monocytes # (A) 0.6 k/uL (0-1.0); Monocytes % (A) 5 %; Neutrophils # (A) 10.7 k/uL (1.3-7.7); Neutrophils % (A) 90 %; RBC 3.71 m/uL (3.80-5.40); WBC 11.9 k/uL (3.8-10.6)
[2023-11-26 04:06] LABS: ALT 33 U/L (4-34); AST 46 U/L (14-36); African American GFR (CKD) >90 (>60 ml/min/1.73 sqM); Albumin 3.9 g/dL (3.5-5.0); Alkaline Phosphatase 114 U/L (38-126); Anion Gap 7 mmol/L; Blood Urea Nitrogen 38 mg/dL (7-17); Calcium 8.9 mg/dL (8.4-10.2); Carbon Dioxide 25 mmol/L (22-30); Chloride 104 mmol/L (98-107); Glucose 130 mg/dL (74-99); Non-African American GFR(CKD) 81 (>60 ml/min/1.73 sqM); Potassium 3.8 mmol/L (3.5-5.1); Sodium 136 mmol/L (137-145); Total Bilirubin 1.2 mg/dL (0.2-1.3); Total Protein 6.4 g/dL (6.3-8.2)
[2023-11-26 04:07] LABS: Partial Thromboplastin Time 23.6 sec (22.0-30.0)
[2023-11-26 04:47] LABS: Platelet Count 88 k/uL (150-450)
[2023-11-26 04:48] LABS: RBC Morphology Normal
[2023-11-26] MEDS: FAMOTIDINE 20 MG TAB PO SCH ×2 (09:21→20:32)
[2023-11-26] MEDS: ACETAMINOPHEN TAB 325 MG TAB PO SCH ×3 (09:21→22:18)
--- NOTE | 2023-11-26 09:45 | P.HPOR ---
History of Present Illness H&P Date: 11/26/23 Chief Complaint: Left hip fracture Patient is an 88-year-old female who presented to [facility] yesterday evening after sustaining a fall at home. Patient was brought to [facility] for further evaluation by EMS. Patient apparently did hit her forehead during the fall. Imaging test demonstrated an impacted left femoral neck fracture. I was contacted by the emergency room physician and was able to review the case. Patient was admitted under orthopedic care with plan for likely surgical intervention. Consults were placed for internal medicine. Patient was evaluated today at bedside, she was in her hospital bed in the emergency room. There was no family present at bedside. Patient seems pleasantly confused today at bedside. She admits to discomfort in the left hip with movement. She denies any other acute orthopedic pain at this time. She denies any previous surgery to the left hip. Remaining review of systems in [facility] was very difficult to her mental status. I did attempt to contact the daughter via cell phone, there was no answer. We'll attempt to contact patient's . Review of Systems Constitutional: Reports as per [facility] Past Medical History Past Medical History: COPD, Hyperlipidemia, Hypertension, Memory Impairment Additional Past Medical History / Comment(s): Hx of falls, Hx of shoulder fracture History of Any Multi-Drug Resistant Organisms: None Reported Past Surgical History: Appendectomy, Cholecystectomy, Hysterectomy Past Anesthesia/Blood Transfusion Reactions: No Reported Reaction Past Psychological History: No Psychological Hx Reported Smoking Status: Never smoker Past Alcohol Use History: None Reported Past Drug Use History: None Reported - Past Family History Father Family Medical History: Cancer, Myocardial Infarction ([place]) Mother Family Medical History: Osteoarthritis (OA) Medications and Allergies Home Medications Medication Instructions Recorded Confirmed Type Atorvastatin [Lipitor] 20 mg PO DAILY 11/26/23 11/26/23 History Memantine HCl [Memantine HCl ER] 21 mg PO DAILY 11/26/23 11/26/23 History Allergies Allergy/AdvReac Type Severity Reaction Status Date / Time Sulfa (Sulfonamide Allergy Unknown Verified 11/26/23 07:19 Antibiotics) Physical Examination Left lower extremity: Obvious shortening and external rotation when compared to the contralateral side . There are no open lesions, sores, areas of erythema or soft tissue swelling Logroll maneuver reproduces severe pain, she is unable to straight leg raise. Hip flexion was not excess. Knee flexion and extension was also difficult due to pain. Patient was nontender surrounding the knee, lower leg, foot or ankle with palpation Plantar flexion, dorsiflexion, EHL, FHL are intact Sensory exam to light touch is intact at the extremity Dorsalis pedis pulses 2+ Results - Labs Labs: Abnormal Lab Results - Last 24 Hours (Table) 11/26/23 11/26/23 11/26/23 Range/Units 03:48 03:48 07:55 WBC 11.9 H (3.8-10.6) k/uL RBC 3.71 L (3.80-5.40) m/uL Plt Count 88 L (150-450) k/uL Neutrophils # 10.7 H (1.3-7.7) k/uL Lymphocytes # 0.5 L (1.0-4.8) k/uL Sodium 136 L (137-145) mmol/L BUN 38 H (7-17) mg/dL Glucose 130 H (74-99) mg/dL AST 46 H (14-36) U/L Creatine Kinase 176 H (30-135) U/L Troponin I (0.000-0.034) ng/mL 11/26/23 Range/Units 07:55 WBC (3.8-10.6) k/uL RBC (3.80-5.40) m/uL Plt Count (150-450) k/uL Neutrophils # (1.3-7.7) k/uL Lymphocytes # (1.0-4.8) k/uL Sodium (137-145) mmol/L BUN (7-17) mg/dL Glucose (74-99) mg/dL AST (14-36) U/L Creatine Kinase (30-135) U/L Troponin I 0.055 H* (0.000-0.034) ng/mL H & H 11/26/23 Range/Units 03:48 Hgb 11.8 (11.4-16.0) gm/dL Hct 36.5 (34.0-46.0) % Coagulation 11/26/23 Range/Units 03:48 INR 1.0 (<1.2) Result Diagrams: 11/26/23 03:48 11/26/23 03:48 - Diagnostic results Hip x-ray: report reviewed, image reviewed Hip CT: report reviewed, image reviewed Assessment and Plan Assessment: Left impacted femoral neck fracture Status post fall from standing Dementia Other medical comorbidities Plan: Imaging: X-rays of the left hip along with AP pelvis were reviewed, CT images and reports were also reviewed of the left hip. Images demonstrate an impacted left femoral neck fracture. Plan: I was able to discuss the case, this including no physical exam findings and imaging studies my attending Dr. Grande. Plan is to proceed with surgical intervention, a direct anterior left total hip arthroplasty versus hemiarthroplasty. Surgery is scheduled for 11/27/2023. After discussion with internal medicine group, cardiology consult was placed due to abnormal EKG findings Internal medicine recommendations appreciated While attempting to contact patient's family and to discuss surgery in further detail, this including risk and benefits. Consent will be obtained prior to procedure Regular diet at this time, nothing by mouth after midnight as of 11/26/2023 Pain control, avoid narcotics due to patient's mental state DVT prophylaxis, we'll begin subcu medication after surgery Urinary catheter insertion Encourage incentive spirometer Nonweightbearing left lower extremity Further recommendations follow Time with Patient: Less than 30
--- NOTE | 2023-11-26 11:37 | P.CRDCN ---
History of Present Illness Consult date: 11/26/23 Reason for Consult (text): History of present illness: This is an 88-year-old female with past medical history of hyperlipidemia, dementia. We have been asked to evaluate the patient for preop clearance and Q- wave on EKG. Patient apparently was at home last evening had a fall in her kitchen. Unknown if patient had any lightheadedness or dizziness prior to this episode. Her helped her and lifted her to a chair and other family members came to evaluate her. was veryshe had significant difficulty with ambulation and family called EMS and brought her into [facility] found to havean acute impacted fracture of the subcapital left femoral neck on CAT scan.patient to be admitted to orthopedics for surgical intervention. Family states the patient had a previous history of cardiac catheterization done about 5 years ago at that time she had elevated enzymes and coronary arteries were normal thought to be spasm related. this hospitalization was at [facility]. Patient is status post morphine and is quite sedated at this time. But according to family, she did not have any complaints of chest pain, shortness of breath. EKG left bundle branch block compared to previous EKGs without any significant change Chest x-ray: mild emphysema. No acute infiltrate or consolidation. WBC 11.9, hemoglobin 11.8, platelet count 88. INR 1. Sodium 136, potassium 3.8, BUN Home cardiac medications: Review Of Systems: At the time of my exam: CONSTITUTIONAL: Denies fever or chills. CARDIOVASCULAR: Denies chest pain, Denies shortness of breath, no orthopnea, PND or palpitations. RESPIRATORY: Denies cough. GASTROINTESTINAL: Denies abdominal pain, diarrhea, constipation, nausea or vomiting. MUSCULOSKELETAL: Denies myalgias. NEUROLOGIC: Denies numbness, tingling or weakness. ENDOCRINE: Denies fatigue, weight change, polydipsia or polyurina. GENITOURINARY: Denies burning, hematuria or urgency with micturation. HEMATOLOGIC: Denies history of anemia or bleeding. Physical examination: Gen: This is an 88 year old female, patient is currently unresponsive. VS: reviewedblood pressure 120/74, heart rate 105, pulse ox 90% on 2 L nasal cannula. HEENT: Head is atraumatic, normocephalic. Pupils equal, round. Sclerae is anicteric. NECK: Supple. No JVD. LUNGS: Clear to auscultation. No wheezes or rhonchi. No intercostal retractions. HEART: Regular rate and rhythm. No murmur. ABDOMEN: Soft No tenderness. EXTREMITIES: No pedal edema. No calf tenderness. Assessment: Left femoral neck fracture, impacted. Patient is scheduled for surgery tomorrow. Mildly elevated troponins of unclear significance History of hyperlipidemia History of dementia Plan: Patient is cleared for surgical intervention with the understanding that she is high risk for cardiovascular risk during the perioperative period given elevated troponin. However, patient does not have aortic stenosis, CHF, and is hemodynamically stable. Obtain 2-D echocardiogram and Doppler study to assess cardiac structure and function Patient is cleared to be admitted to med-surg floor. Further recommendations to follow based upon clinical course Thank you kindly for this consultation. Nurse practitioner note has been reviewed, I agree with documented findings and plan of care. Patient was seen and examined. Past Medical History Past Medical History: COPD History of Any Multi-Drug Resistant Organisms: None Reported Past Surgical History: Appendectomy, Cholecystectomy, Hysterectomy Past Anesthesia/Blood Transfusion Reactions: No Reported Reaction Past Psychological History: No Psychological Hx Reported Past Alcohol Use History: None Reported Past Drug Use History: None Reported - Past Family History Father Family Medical History: Cancer, Myocardial Infarction ([place]) Mother Family Medical History: Osteoarthritis (OA) Medications and Allergies Home Medications Medication Instructions Recorded Confirmed Type Atorvastatin [Lipitor] 20 mg PO DAILY 11/26/23 11/26/23 History Memantine HCl [Memantine HCl ER] 21 mg PO DAILY 11/26/23 11/26/23 History Allergies Allergy/AdvReac Type Severity Reaction Status Date / Time Sulfa (Sulfonamide Allergy Unknown Verified 11/26/23 07:19 Antibiotics) Physical Exam Vitals: Vital Signs Temp Pulse Resp BP Pulse Ox FiO2 11/26/23 05:00 105 H 19 120/74 98 2 11/26/23 04:30 93 14 108/64 97 11/26/23 04:00 101 H 18 114/65 100 11/26/23 03:14 100 16 121/76 94 L 11/26/23 00:27 98.4 F 90 18 125/63 93 L Intake and Output 11/25/23 11/26/23 11/26/23 22:59 06:59 14:59 Other: Weight 45.359 kg Results 11/26/23 03:48 11/26/23 03:48 Cardiac Enzymes 11/26/23 Range/Units 03:48 AST 46 H (14-36) U/L Coagulation 11/26/23 Range/Units 03:48 PT 11.0 (10.0-12.5) sec APTT 23.6 (22.0-30.0) sec CBC 11/26/23 Range/Units 03:48 WBC 11.9 H (3.8-10.6) k/uL RBC 3.71 L (3.80-5.40) m/uL Hgb 11.8 (11.4-16.0) gm/dL Hct 36.5 (34.0-46.0) % Plt Count 88 L (150-450) k/uL Comprehensive Metabolic Panel 11/26/23 Range/Units 03:48 Sodium 136 L (137-145) mmol/L Potassium 3.8 (3.5-5.1) mmol/L Chloride 104 (98-107) mmol/L Carbon Dioxide 25 (22-30) mmol/L BUN 38 H (7-17) mg/dL Creatinine 0.61 (0.52-1.04) mg/dL Glucose 130 H (74-99) mg/dL Calcium 8.9 (8.4-10.2) mg/dL AST 46 H (14-36) U/L ALT 33 (4-34) U/L Alkaline Phosphatase 114 (38-126) U/L Total Protein 6.4 (6.3-8.2) g/dL Albumin 3.9 (3.5-5.0) g/dL Current Medications Generic Name Dose Route Start Last Admin Trade Name Freq PRN Reason Stop Dose Admin Al Hydroxide/Mg Hydroxide 15 ml 11/26/23 03:23 Mag Hydrox/Al Hydrox/Simeth 30 Ml Cup PO Q6HR PRN Indigestion Docusate Sodium 100 mg 11/26/23 03:23 Docusate 100 Mg Cap PO BID PRN Constipation Famotidine 20 mg 11/26/23 09:00 Famotidine 20 Mg Tab PO BID RANDELL Sodium Chloride 1,000 mls @ 75 mls/hr 11/26/23 03:22 11/26/23 03:34 Saline 0.9% IV 11/26/23 16:41 75 mls/hr .[id number] STA Administration Sodium Chloride 1,000 mls @ 75 mls/hr 11/26/23 03:30 11/26/23 03:46 Saline 0.9% IV Not Given .[id number] RANDELL Morphine Sulfate 2 mg 11/26/23 03:23 11/26/23 06:17 Morphine Sulfate 2 Mg/Ml Syringe IV 2 mg Q4HR PRN Administration Severe Pain (Scale 7 to 10) Naloxone HCl 0.2 mg 11/26/23 03:23 Naloxone 0.4 Mg/Ml 1 Ml Vial IV Q2M PRN Opioid Reversal Ondansetron HCl 4 mg 11/26/23 03:23 Ondansetron 4 Mg/2 Ml Vial IVP Q8HR PRN Nausea And Vomiting Intake and Output 11/25/23 11/26/23 11/26/23 22:59 06:59 14:59 Other: Weight 45.359 kg 11/26/23 03:48 11/26/23 03:48
--- NOTE | 2023-11-26 14:32 | P.CONS ---
History of Present Illness - Reason for Consult Consult date: 11/26/23 presurgical clearance Requesting physician: Samuel Grande - Chief Complaint fall - History of Present Illness Patient is an 88-year-old female with cognitive impairment, hypertension, and dyslipidemia who presented to the emergency department after a fall at home. CT head demonstrated no hemorrhage or mass effect. Left hip x-ray demonstrated shortening of the left femoral neck due to rotation with no definitive acute fracture. This was followed by a CT of the hip which demonstrated an acute impacted fracture of the subcapital left femoral neck chest x-ray showed no acute process. We were asked to consult for surgical clearance. Patient seen and examined at bedside. She is complaining for pain abound her lower abdomen. She denies any chest pain, SOB, light headness or headache. She does not remember her fall and she believes that it is 1965. Case discussed with daughter who is her primary helmet coverer at bedside. She lives with her who has some physical limitations but the patient herself is very ambulatory and active. She was able to walk distances without complaining of chest pain or shortness of breath. Apparently she was up in the kitchen moving around and her heard a thud. He went in there to find her on the floor. It did not appear she had lost consciousness but they are unsure. He was able to then get her to a chair. She does have a history of a cardiac event in the past where she was taken for cardiac cath but was told that her changes were likely due to stress and not coronary artery disease. This was approximately 5 years ago at [facility]. Vital signs reviewed General: nontoxic, no distress, appears at stated age Derm: warm, dry Eyes: EOMI, no lid lag, anicteric sclera, pupils equal round reactive to light ENT: Nose and ears atraumatic, no thrush, no pharyngeal erythema Cardiovascular: S1S2 reg, no murmur, positive posterior tibial pulse bilateral, no edema, capillary refill less than 2 seconds Lungs: clear to auscultation bilateral, no rhonchi, no rales, no wheeze, no accessory muscle use Abdominal: soft, nontender to palpation, no guarding, no appreciable organomegaly, normal bowel sounds Ext: no gross muscle atrophy, no contractures, no pain to palpation over both knees or right hip + pain to palpation over left hip Neuro: CN II-XII grossly intact,no gross neurodeficits Psych: Alert, oriented to being in the hospital, appropriate affect Assessment/Plan: 88-year-old female with left femoral neck fracture after mechanical fall -Case discussed with Shamar Concepcion and plan is for OR tomorrow Preoperative evaluation: EKG changes noted with Q- wave in II & III (new) and LBBB (Old) -Consult cardiology -Check stat troponin -Check echocardiogram -Telemetry HTN - resume metoprolol 12.5 mg once daily HLD - resume Atrovastatin 20 mg daily Cognitive impairment - safe and supportive environment - Memantine 21 mcg daily Thrombocytopenia, undetermined etiology -Appears chronic but worsening since 2020. Imaging: As above additionally EKG: Sinus tachycardia at a rate of 100. left bundle branch block known with left axis deviation. Data Review: Labs reviewed include CBC, coags, and CMP which are remarkable for white blood cell count 11.9, platelets 88, sodium 136 Thank you for allowing us to participate in the care of this pleasant patient. Do not hesitate to contact us with questions. Someone can be reached from the [facility] hospitalist group all hours of the day at [phone] or via [employer]. This dictation was prepared using [employer] voice recognition software. Though every attempt is made to correct errors during dictation some may still exist. Past Medical History Past Medical History: COPD, Hyperlipidemia, Hypertension, Memory Impairment Additional Past Medical History / Comment(s): Hx of falls, Hx of shoulder fracture History of Any Multi-Drug Resistant Organisms: None Reported Past Surgical History: Appendectomy, Cholecystectomy, Hysterectomy Past Anesthesia/Blood Transfusion Reactions: No Reported Reaction Past Psychological History: No Psychological Hx Reported Smoking Status: Never smoker Past Alcohol Use History: None Reported Past Drug Use History: None Reported - Past Family History Father Family Medical History: Cancer, Myocardial Infarction ([place]) Mother Family Medical History: Osteoarthritis (OA) Medications and Allergies Home Medications Medication Instructions Recorded Confirmed Type Atorvastatin [Lipitor] 20 mg PO DAILY 11/26/23 11/26/23 History Memantine HCl [Memantine HCl ER] 21 mg PO DAILY 11/26/23 11/26/23 History Allergies Allergy/AdvReac Type Severity Reaction Status Date / Time Sulfa (Sulfonamide Allergy Unknown Verified 11/26/23 07:19 Antibiotics) Physical Exam Osteopathic Statement: *. No significant issues noted on an osteopathic structural exam other than those noted in the History and Physical/Consult. Vitals: Vital Signs Temp Pulse Resp BP Pulse Ox FiO2 11/26/23 05:00 105 H 19 120/74 98 2 11/26/23 04:30 93 14 108/64 97 11/26/23 04:00 101 H 18 114/65 100 11/26/23 03:14 100 16 121/76 94 L 11/26/23 00:27 98.4 F 90 18 125/63 93 L Intake and Output 11/25/23 11/26/23 11/26/23 22:59 06:59 14:59 Other: Weight 45.359 kg Results CBC & Chem 7: 11/26/23 03:48 11/26/23 03:48 Labs: Abnormal Lab Results - Last 24 Hours (Table) 11/26/23 11/26/23 Range/Units 03:48 03:48 WBC 11.9 H (3.8-10.6) k/uL RBC 3.71 L (3.80-5.40) m/uL Plt Count 88 L (150-450) k/uL Neutrophils # 10.7 H (1.3-7.7) k/uL Lymphocytes # 0.5 L (1.0-4.8) k/uL Sodium 136 L (137-145) mmol/L BUN 38 H (7-17) mg/dL Glucose 130 H (74-99) mg/dL AST 46 H (14-36) U/L
[2023-11-26] MEDS: ASPIRIN 81 MG PO SCH (14:35)
--- NOTE | 2023-11-26 17:17 | CA ---
Transthoracic Echo Report Name: Veronica Morris Age: 88 Gender: F : 1935 Exam Date: 11/26/2023 11:40 Exam Location: [place] [facility] Ht (in): 65 Wt (lb): 100 Ordering Physician: Brenda Dyer Attending/Referring Phys: [id number], Gomez Lifter Driver Crispin Medrano Procedure CPT: Indications: lvh, preop clearance Cardiac Hx: Technical Quality: Fair Contrast 1: Total Dose (mL): Contrast 2: Total Dose (mL): MEASUREMENTS (Male / Female) Normal Values 2D ECHO LV Diastolic Diameter PLAX 4.1 cm 4.2 - 5.9 / 3.9 - 5.3 cm LV Systolic Diameter PLAX 2.7 cm IVS Diastolic Thickness 0.9 cm 0.6 - 1.0 / 0.6 - 0.9 cm LVPW Diastolic Thickness 0.9 cm 0.6 - 1.0 / 0.6 - 0.9 cm LV Relative Wall Thickness 0.5 RV Internal Dim ED PLAX 3.0 cm LVOT Diameter 1.7 cm Aortic Root Diameter 2.7 cm LA Systolic Diameter LX 2.0 cm 3.0 - 4.0 / 2.7 - 3.8 cm LV Diastolic Volume MOD BP 48.7 cm??? 67 - 155 / 56 - 104 cm??? LV Systolic Volume MOD BP 21.3 cm??? 22 - 58 / 19 - 49 cm??? LV Ejection Fraction MOD BP 56.2 % >= 55 % LV Cardiac Index MOD BP 1858.1 cm???/min???m??? LV Diastolic Volume MOD 4C 44.5 cm??? LV Systolic Volume MOD 4C 22.7 cm??? LV Ejection Fraction MOD 4C 49.0 % LV Cardiac Index MOD 4C 1480.5 cm???/min???m??? LV Diastolic Length 4C 5.5 cm LV Systolic Length 4C 5.3 cm LV Diastolic Volume MOD 2C 49.7 cm??? LV Systolic Volume MOD 2C 19.5 cm??? LV Ejection Fraction MOD 2C 60.8 % LV Cardiac Index MOD 2C 2049.5 cm???/min???m??? LV Diastolic Length 2C 6.0 cm LV Systolic Length 2C 5.4 cm LA Volume 33.0 cm??? 18 - 58 / 22 - 52 cm??? LA Volume Index 23.1 cm???/m??? 16 - 28 cm???/m??? DOPPLER AV Peak Velocity 98.6 cm/s AV Peak Gradient 3.9 mmHg LVOT Peak Velocity 72.2 cm/s LVOT Peak Gradient 2.1 mmHg LVOT Velocity Time Integral 14.3 cm LVOT Stroke Volume 31.4 cm??? LVOT Stroke Volume Index 21.3 ml/m??? LVOT Cardiac Index 2131.0 cm???/min???m??? AV Area Cont Eq pk 1.6 cm??? MV Peak Velocity 121.8 cm/s MV Peak Gradient 5.9 mmHg MV Mean Velocity 55.9 cm/s MV Mean Gradient 1.7 mmHg MV Velocity Time Integral 23.2 cm MV E' Velocity 10.5 cm/s TR Peak Velocity 319.4 cm/s TR Peak Gradient 40.8 mmHg Right Ventricular Systolic Press 50.8 mmHg FINDINGS Left Ventricle Normal V size and wall thickness. Left ventricular ejection fraction is estimated at 50-55 %. Right Ventricle Normal right ventricular size. RVSP= 41mmHg. Right Atrium Normal right atrial size. Left Atrium Mild left atrial dilatation. LA volume index= 22ml/m2 Mitral Valve Mild thickening/calcification of the posterior mitral valve annulus. Aortic Valve Mild AV calcification/sclerosis.Trace AI. Tricuspid Valve Structurally normal tricuspid valve. Moderate to severe TR. Pulmonic Valve Pulmonic valve not well visualized. No pulmonic regurgitation. Pericardium Normal pericardium. Aorta Normal size aortic root. CONCLUSIONS Normal LV function Dilated right ventricle Moderate to severe tricuspid regurgitation Moderate pulmonary hypertension Previewed by: Dr. Per Ho MD (Electronically Signed) Final Date: 26 November 2023 17:16
[2023-11-26] MEDS ORDERED: METOPROLOL TARTRATE 12.5 MG TAB PO ONE (18:00)
[2023-11-26 20:56] LABS: Appearance,Urine Clear (Clear); Bilirubin,Urine Negative (Negative); Blood,Urine Trace (Negative); Color,Urine Yellow; Glucose,Urine (UA) Negative (Negative); Ketones,Urine Negative (Negative); Leukocyte Esterase,Urine Negative (Negative); Mucus,Urine Many /hpf; Nitrite,Urine Negative (Negative); PH, Urine 6.5 (5.0-8.0); Protein,Urine 1+ (Negative); RBC,Urine 20 /hpf (0-5); Specific Gravity,Urine 1.024 (1.001-1.035); Urobilinogen,Urine <2.0 mg/dL (<2.0); WBC,Urine 2 /hpf (0-5)
[2023-11-27 08:20] LABS: HCT 33.5 % (34.0-46.0); HGB 10.9 gm/dL (11.4-16.0); MCH 32.3 pg (25.0-35.0); MCHC 32.5 g/dL (31.0-37.0); MCV 99.3 fL (80.0-100.0); Mean Platelet Volume 10.7; RBC 3.37 m/uL (3.80-5.40); RDW 13.6 % (11.5-15.5); WBC 11.5 k/uL (3.8-10.6)
[2023-11-27 08:38] LABS: African American GFR (CKD) >90 (>60 ml/min/1.73 sqM); Anion Gap 9 mmol/L; Blood Urea Nitrogen 24 mg/dL (7-17); Calcium 8.1 mg/dL (8.4-10.2); Carbon Dioxide 24 mmol/L (22-30); Chloride 106 mmol/L (98-107); Glucose 99 mg/dL (74-99); Non-African American GFR(CKD) 81 (>60 ml/min/1.73 sqM); Potassium 3.6 mmol/L (3.5-5.1); Sodium 139 mmol/L (137-145)
[2023-11-27 08:39] LABS: Platelet Count 80 k/uL (150-450)
[2023-11-27] MEDS: ATORVASTATIN 20 MG TAB PO SCH (09:03)
[2023-11-27] MEDS: ACETAMINOPHEN TAB 325 MG TAB PO SCH ×3 (09:03→21:27)
[2023-11-27] MEDS: METOPROLOL SUCCINATE (ER) 25 MG TAB.ER.24H PO SCH (09:03)
[2023-11-27] MEDS: FAMOTIDINE 20 MG TAB PO SCH (09:03)
[2023-11-27] MEDS: MEMANTINE 5 MG TAB PO SCH ×2 (09:04→21:28)
[2023-11-27] MEDS: SODIUM CHLORIDE 0.9% 1,000 ML IV SCH ×2 (09:05→21:26)
[2023-11-27 10:39] VITALS: BMI 16.6
[2023-11-27] MEDS: ASPIRIN 81 MG PO SCH (11:32)
[2023-11-27] MEDS: LACTATED RINGERS 1,000 ML IV SCH (12:01)
[2023-11-27] MEDS ORDERED: IV FLUID CONTINUATION 400 ML IV ONE (12:10)
[2023-11-27] MEDS ORDERED: SODIUM CHLORIDE 0.9% 1,000 ML IV ONE (12:30)
[2023-11-27] MEDS ORDERED: LIDOCAINE 1% INJ 10MG/ML (20 ML MDV) ONE (12:53)
[2023-11-27] MEDS ORDERED: fentaNYL (PF) 50 MCG/ML 2 ML AMP ONE (12:53)
[2023-11-27] MEDS ORDERED: PROPOFOL 10 MG/ML 20 ML VIAL IV ONE (12:53)
[2023-11-27] MEDS ORDERED: SUCCINYLCHOLINE CHLORIDE 200 MG/10 ML VIAL IV ONE (12:53)
[2023-11-27] MEDS ORDERED: SODIUM CHLORIDE 0.9% 50 ML with ceFAZolin 2,000 MG IV ONE ×2 (13:00)
[2023-11-27] MEDS ORDERED: ceFAZolin 1,000 MG in SODIUM CHLORIDE 0.9% 1,000 ML IRRIGATION ONE (13:28)
--- NOTE | 2023-11-27 13:40 | P.PN ---
Subjective HISTORY OF PRESENT ILLNESS: This is an 88-year-old female with past medical history of hyperlipidemia, dementia. We have been asked to evaluate the patient for preop clearance and Q- wave on EKG. Patient apparently was at home last evening had a fall in her kitchen. Unknown if patient had any lightheadedness or dizziness prior to this episode. Her helped her and lifted her to a chair and other family members came to evaluate her. was veryshe had significant difficulty with ambulation and family called EMS and brought her into [facility] found to havean acute impacted fracture of the subcapital left femoral neck on CAT scan.patient to be admitted to orthopedics for surgical intervention. Family states the patient had a previous history of cardiac catheterization done about 5 years ago at that time she had elevated enzymes and coronary arteries were normal thought to be spasm related. this hospitalization was at [facility]. Patient is status post morphine and is quite sedated at this time. But according to family, she did not have any complaints of chest pain, shortness of breath. EKG left bundle branch block compared to previous EKGs without any significant change Chest x-ray: mild emphysema. No acute infiltrate or consolidation. WBC 11.9, hemoglobin 11.8, platelet count 88. INR 1. Sodium 136, potassium 3.8, BUN 11/27/2023 Patient examined this morning at the bedside. Patient remains confused and has been trying to pull out her IV lines overnight. She is a patient safety tech present. There is no family at the time of examination. The patient is scheduled to undergo surgery with orthopedics today. Echocardiogram completed revealing ejection fraction 50-55%, moderate to severe TR, and moderate pulmonary hypertension PHYSICAL EXAM: VITAL SIGNS: Reviewed. GENERAL: Well-developed in no acute distress. NECK: Supple. No JVD or thyromegaly LUNGS: Respirations even and unlabored. Lungs essentially clear to auscultation bilaterally. HEART: Regular rate and rhythm. S1 and S2 heard. EXTREMITIES: Normal range of motion. No clubbing or cyanosis. Peripheral pulses intact. No lower extremity edema ASSESSMENT: Left femoral neck fracture, impacted Mildly elevated troponins of unclear significance History of hyperlipidemia History of dementia PLAN: Patient is high risk to undergo surgery from a cardiac standpoint. However there are no absolute contraindications. Patient may be transferred to the med-surg unit from a cardiac standpoint We will sign off. Please reconsult if needed. Nurse practitioner note has been reviewed by physician. Signing provider agrees with the documented findings, assessment, and plan of care. Objective - Vital Signs Vital signs: Vital Signs Temp 99.3 F 11/27/23 12:10 Pulse 78 11/27/23 12:10 Resp 16 11/27/23 12:10 BP 163/70 11/27/23 12:10 Pulse Ox 97 11/27/23 12:10 FiO2 2 11/26/23 05:00 Intake & Output 11/26/23 11/27/23 11/27/23 18:59 06:59 18:59 Intake Total 151 Output Total 375 Balance -224 Weight 45.359 kg 45.359 kg Intake: IV 151 Blood Product 0 Unit 0 Output: Urine 375 Other: Voiding Method Indwelling Catheter Indwelling Catheter - Labs CBC & Chem 7: 11/27/23 07:54 11/27/23 07:54 Labs: Abnormal Lab Results - Last 24 Hours (Table) 11/26/23 11/27/23 11/27/23 Range/Units 20:37 07:54 07:54 WBC 11.5 H (3.8-10.6) k/uL RBC 3.37 L (3.80-5.40) m/uL Hgb 10.9 L (11.4-16.0) gm/dL Hct 33.5 L (34.0-46.0) % Plt Count 80 L (150-450) k/uL BUN 24 H (7-17) mg/dL Calcium 8.1 L (8.4-10.2) mg/dL Troponin I (0.000-0.034) ng/mL Urine Protein 1+ H (Negative) Urine Blood Trace H (Negative) Urine RBC 20 H (0-5) /hpf Urine Mucus Many H (None) /hpf 11/27/23 Range/Units 07:54 WBC (3.8-10.6) k/uL RBC (3.80-5.40) m/uL Hgb (11.4-16.0) gm/dL Hct (34.0-46.0) % Plt Count (150-450) k/uL BUN (7-17) mg/dL Calcium (8.4-10.2) mg/dL Troponin I 0.336 H* (0.000-0.034) ng/mL Urine Protein (Negative) Urine Blood (Negative) Urine RBC (0-5) /hpf Urine Mucus (None) /hpf
[2023-11-27] MEDS ORDERED: LACTATED RINGERS 1,000 ML IV ONE (13:44)
[2023-11-27] MEDS ORDERED: HYDROmorphone 0.5 MG/0.5 ML SYRINGE IVP PRN ×3 (14:04)
[2023-11-27] MEDS ORDERED: Acetaminophen-Codeine 300-30mg TAB PO PRN ×2 (14:04)
[2023-11-27] MEDS ORDERED: NALOXONE 0.4 MG/ML 1 ML VIAL IV PRN (14:04)
[2023-11-27] MEDS ORDERED: ONDANSETRON 4 MG/2 ML VIAL IVP PRN (14:04)
--- NOTE | 2023-11-27 14:04 | P.OP ---
Date of Procedure: 11/27/23 Preoperative Diagnosis: Displaced left hip femoral neck fracture Postoperative Diagnosis: Displaced left hip femoral neck fracture Procedure(s) Performed: Left hip hemiarthroplasty Implants: 1. Depuy Corail standard collar size 14 125 press-fit femoral stem 2. Depuy modular fracture head 44 mm OD with a 0 mm 12/14 tapered spacer Anesthesia: ELENITA Surgeon: Samuel Grande Solar Project Coordination Specialist #1: Harjinder Concepcion Estimated Blood Loss (ml): 30 Pathology: none sent Condition: stable Disposition: PACU Indications for Procedure: 88-year-old patient seen with a displaced left hip femoral neck fracture. I recommend left hip hemiarthroplasty. I discussed the procedure, risks, complications and recovery with patient and her daughter. They were agreeable. Consent was obtained. Operative Findings: see description of procedure Description of Procedure: Patient was taken to the operative suite. She received preoperative IV antibiotics. She underwent general anesthetic by the department of anesthesia. Patient was then transferred to the operative table placed into a lateral position making sure the bony prominence were appropriately padded. The left hip was then prepped and draped in normal sterile orthopedic fashion. An I made a standard posterior incision sharply through skin. I then dissected down to the IT band. I made an incision through the IT band and fascia. I now with assistive the tj concepcion into rotating the hip identified the short short external rotators and released them. I released the posterior capsule. I identified the fractured femoral head extracted without difficulty. I now resected some residual femoral neck. I now began broaching making her way to a size 14 which had good rotational stability. We sized our femoral head to a 44 mm. I now placed a trial metal endoprosthetic 40 from head and reduce it. I now turned with range of motion we had a good overall stability. I now dislocated the hip. I removed all trial components. I irrigated the wound out copiously with pulse lavage mechanical irrigation. We chose our implants. I now inserted a size 14 femoral stem and tapped that down until a secure. A good stability. I now secured our femoral 44 mm endoprosthetic head with a 0 mm spacer. We now reduce the hip. We took her through range of motion with good range of motion good stability. We irrigated the wound out copiously. I now repaired the posterior hip capsule with #1 Vicryl. I repaired the short external rotators with #1 Vicryl. I repaired the IT down #1 Vicryl. Subcu soft tissues repaired in layers with 2-0 Vicryl. The skin is proximal skin luis. Sterile dressings were applied. The patient was then awakened placed in abduction pillow transferred to recovery stable condition. Her prognosis is guarded given her age and comorbidities.
[2023-11-27] MEDS ORDERED: traMADol 50 MG TAB PO PRN (14:17)
--- NOTE | 2023-11-27 14:43 | XR ---
EXAMINATION TYPE: XR Hip Limited LT DATE OF EXAM: 11/27/2023 Comparison: None Clinical History: 88-year-old female Status post hip surgery, assess surgical alignment Findings: Image shows placement of left hip hemiarthroplasty. The femoral stem component appears well-seated wi thout periprosthetic fracture. Alignment grossly anatomic. Soft tissue air related to recent operatio n. Impression: Uncomplicated postoperative appearance left hip hemiarthroplasty.
--- NOTE | 2023-11-27 15:48 | P.PN ---
Subjective Progress Note Date: 11/27/23 (delayed charting seen at 1030) Patient is an 88-year-old female with cognitive impairment, hypertension, and dyslipidemia who presented to the emergency department after a fall at home. CT head demonstrated no hemorrhage or mass effect. Left hip x-ray demonstrated shortening of the left femoral neck due to rotation with no definitive acute fracture. This was followed by a CT of the hip which demonstrated an acute impacted fracture of the subcapital left femoral neck chest x-ray showed no acute process. We were asked to consult for surgical clearance. Patient to have EKG changes and elevated troponin. Cardiology consulted. Echocardiogram with preserved ejection fraction. Patient seen and examined at bedside. She is resting comfortably. Care discussed with daughter and nurse. Patient has been complaining of minimal pain and it has been in her back. Vital signs reviewed General: Nontoxic, no distress, appears at stated age Cardiovascular: S1S2 reg, no murmur, positive posterior tibial pulse bilateral, Lungs: Decreased breath sounds bilateral, no rhonchi, no rales, no accessory mu scle use Abdominal: Soft, nontender to palpation, no guarding, no appreciable organomegaly Ext: No gross muscle atrophy, no edema b/l lower extremities, no contractures Psych: Sleeping Assessment/Plan: 88-year-old female with left femoral neck fracture after mechanical fall -Plan is for OR today - Patient has advance directive and is a do not ressucitate, family aware of full code status in the perioperative perioud but then would like DNR. Elevated Troponin, unclear significance -Cardiology note reviewed: Will sign off Thrombocytopenia, undetermined etiology Anemia, likely due to acute blood loss from fracture -No indication for transfusion for hemoglobin. Orthopedics has requested 1 unit of platelets prior to OR. -Thrombocytopenia appears chronic but worsening since 2020. -Follow CBC HTN - metoprolol 12.5 mg once daily HLD -Atrovastatin 20 mg daily Cognitive impairment - safe and supportive environment - Memantine 21 mcg daily Imaging: Echocardiogram with ejection fraction 50 to 55%, moderate to severe tricuspid r egurgitation, moderate pulmonary hypertension. Data Review: Labs reviewed from today include CBC and basic metabolic profile which are remarkable for white blood cell count 11.5, hemoglobin 10.9, platelets 80, BUN 24, troponin was mildly elevated at 0.336. Thank you for allowing us to participate in the care of this pleasant patient. Do not hesitate to contact us with questions. Someone can be reached from the [facility] [place] hospitalist group all hours of the day at [phone] or via perfect serve. This dictation was prepared using [employer] voice recognition software. Though every attempt is made to correct errors during dictation some may still exist. Objective - Vital Signs Vital signs: Vital Signs Temp 97 F L 11/27/23 14:07 Pulse 80 11/27/23 15:00 Resp 16 11/27/23 15:00 BP 172/71 11/27/23 15:00 Pulse Ox 94 L 11/27/23 15:00 FiO2 2 11/26/23 05:00 Intake & Output 11/26/23 11/27/23 11/27/23 18:59 06:59 18:59 Intake Total 551 Output Total 705 Balance -154 Weight 45.359 kg 45.359 kg Intake: IV 551 Blood Product 0 Unit 0 Output: Urine 675 Estimated Blood Loss 30 Other: Voiding Method Indwelling Catheter Indwelling Catheter - Labs CBC & Chem 7: 11/27/23 07:54 11/27/23 07:54 Labs: Abnormal Lab Results - Last 24 Hours (Table) 11/26/23 11/27/23 11/27/23 Range/Units 20:37 07:54 07:54 WBC 11.5 H (3.8-10.6) k/uL RBC 3.37 L (3.80-5.40) m/uL Hgb 10.9 L (11.4-16.0) gm/dL Hct 33.5 L (34.0-46.0) % Plt Count 80 L (150-450) k/uL BUN 24 H (7-17) mg/dL Calcium 8.1 L (8.4-10.2) mg/dL Troponin I (0.000-0.034) ng/mL Urine Protein 1+ H (Negative) Urine Blood Trace H (Negative) Urine RBC 20 H (0-5) /hpf Urine Mucus Many H (None) /hpf 11/27/23 Range/Units 07:54 WBC (3.8-10.6) k/uL RBC (3.80-5.40) m/uL Hgb (11.4-16.0) gm/dL Hct (34.0-46.0) % Plt Count (150-450) k/uL BUN (7-17) mg/dL Calcium (8.4-10.2) mg/dL Troponin I 0.336 H* (0.000-0.034) ng/mL Urine Protein (Negative) Urine Blood (Negative) Urine RBC (0-5) /hpf Urine Mucus (None) /hpf
[2023-11-27] MEDS: SENNOSIDES-DOCUSATE SODIUM 1 EACH TAB PO SCH (21:28)
[2023-11-28] MEDS: SODIUM CHLORIDE 0.9% 1,000 ML IV SCH ×2 (05:49→18:28)
[2023-11-28] MEDS: MEMANTINE 5 MG TAB PO SCH ×2 (08:56→21:41)
[2023-11-28] MEDS: ENOXAPARIN 40 MG/0.4 ML SYRINGE SQ SCH (08:56)
[2023-11-28] MEDS: ASPIRIN 81 MG PO SCH (08:57)
[2023-11-28] MEDS: ATORVASTATIN 20 MG TAB PO SCH (08:57)
[2023-11-28] MEDS: METOPROLOL SUCCINATE (ER) 25 MG TAB.ER.24H PO SCH (08:57)
[2023-11-28] MEDS: ACETAMINOPHEN TAB 325 MG TAB PO SCH ×3 (08:58→21:41)
[2023-11-28] MEDS: FAMOTIDINE 20 MG TAB PO SCH (08:58)
[2023-11-28] MEDS: LACTATED RINGERS 1,000 ML IV SCH (11:58)
--- NOTE | 2023-11-28 13:09 | P.PN ---
Subjective Progress Note Date: 11/28/23 Hospital course: Patient is a very pleasant 88-year-old female with a past medical history of cognitive impairment, hypertension, and dyslipidemia. She presented to the emergency department on 11/26/23 after having a fall at her home. She underwent full evaluation. CT head negative for acute intercranial process showing mild scalp swelling. X-ray left hip showing foreshortening of the left femoral neck with no definite acute fracture line visible. Chest x-ray showing hyperinfl ation with coarse interstitial markings suggesting mild emphysema but negative for acute process, focal infiltrate or consolidation. CT left hip was completed secondary to inconclusive x-ray which revealed an acute impacted fracture of the subcapital left femoral neck. EKG was completed showing sinus tachycardia with a left bundle branch block with prolonged QRS duration 137 ms. Labs were compl eted and reviewed. CBC revealed leukocytosis with WBC count of 11.9 and thrombocytopenia with platelet count of 88. BMP showing prerenal azotemia with BUN of 38 otherwise no significant abnormalities. Liver profile showing elevated AST of 46 otherwise normal findings. Initial troponin 0.055. Patient was admitted under orthopedic surgery team and we were consulted along with cardiology for continued medical management. Troponins were trended resulting in 0.055, 0.133, and 0.336. She was evaluated by cardiology for surgical clearance, cardiology stated patient is at high risk to undergo surgery from cardiac standpoint however give no absolute contraindications to go through with urgent surgical repair of left femoral neck fracture. Echocardiogram was completed showing a preserved EF of 50-55% with a dilated right ventricle, moderate to severe tricuspid regurgitation, and moderate pulmonary hypertension. On 11/27/23 patient underwent surgical repair of displaced left femoral neck fracture and underwent left hip hemiarthroplasty with Dr. Grande. Physical exam: Patient seen and fully evaluated at the bedside this morning. Patient sitting up in a chair and appears to be doing well. She is postoperative day 1 and denies having any complaints at this time. Patient denies having any headache, lightheadedness, dizziness, chest pain, palpitations, shortness of breath, or experiencing any numbness/tingling/focal weakness in her extremities. Patient reports postoperative pain is controlled and denies experiencing any postoperative nausea or vomiting. Vital signs reviewed and stable. General: Nontoxic, no distress and appears stated age. Derm: Skin warm and dry, normal coloration for ethnicity. Head: Normocephalic and symmetric with hematoma left lateral forehead/temporal region. Eyes: EOMs intact, no lid lag, and anicteric sclera Mouth: no lip lesions, mucus membranes moist Cardiovascular: regular rate and rhythm with normal S1S2, systolic murmur, positive posterior tibial pulses bilaterally, and cap refill < 2 seconds. Lungs: Respirations even, regular, and unlabored on room air. Lungs CTA bilaterally, no rhonchi, no rales, no wheezing, and no accessory muscle usage. Abdominal: soft, nontender to palpation, no guarding, no appreciable organomeg ángel. Sanchez catheter in place. Ext: Movement and sensation intact. No gross muscle atrophy, no edema, no contractures Neuro: Speech clear, face symmetrical and CN II-XII grossly intact with no noted focal neuro deficits Psych: Alert and oriented to person, place, time, and situation. Appropriate and pleasant affect. Assessment and Plan of Care: 88-year-old female with left femoral neck fracture after mechanical fall at home Left femoral neck fracture Status post left hip hemiarthroplasty -Management per primary admitting orthopedic surgery team including DVT prophylaxis, pain management, wound/dressing management, weightbearing, and PT/OT. Elevated Troponins, of unclear significance - Echocardiogram was completed showing a preserved EF of 50-55% with a dilated right ventricle, moderate to severe tricuspid regurgitation, and moderate pulmonary hypertension. -Cardiology evaluated, no plans for intervention or further recommendations at this time. Cardiology clearing patient from cardiac perspective and signing off patient at this time. Thrombocytopenia, undetermined etiology Anemia, likely due to acute blood loss from fracture -No indication for transfusion of PRBCs at this time with hemoglobin stable at 10.9. Currently awaiting repeat daily labs to be drawn. -Platelet count was 80 and patient received 1 unit of platelets prior to surgical intervention on 11/27/23, currently awaiting repeat daily labs to be drawn. -Thrombocytopenia appears chronic but worsening since 2020. -Follow CBC HTN -Patient to continue daily medication regimen with metoprolol 12.5 mg once daily HLD -Patient to continue daily medication regimen with Atrovastatin 20 mg daily Cognitive impairment -Provide safe and supportive environment with assistance and redirection as needed -Continue daily medication regimen with Memantine 7.5 mg twice daily. Data reviewed: Morning labs awaiting to be drawn, discussed with RN. Order placed for stat labs at this time and will follow up with these results. Vital signs reviewed. Morning blood pressure 172/72, heart rate 92, respiratory rate 18, temp 98.2F, and SpO2 of 94% on 2 L O2 via nasal cannula. Repeat blood pressure and heart rate after morning metoprolol showing significant improvement with blood pressure 133/60 and heart rate 76. Thank you for allowing us to participate in the care of this pleasant patient. Do not hesitate to contact us with questions. Someone can be reached from the [facility] hospitalist group all hours of the day at [phone] or via [employer]. Patient was seen independently by Nurse Pracitioner. This document was prepared using [employer] dictation software. Please allow for errors in flat knitter helper, while rare they do occur. Rolando Weldon NP rendered care for this patient independently, reviewed the findings and plan as documented in the note above. I did not physically speak with or examine the patient on this date. Objective - Vital Signs Vital signs: Vital Signs Temp 97 F L 11/27/23 14:07 Pulse 100 11/28/23 03:31 Resp 18 11/28/23 03:31 BP 143/70 11/28/23 03:31 Pulse Ox 97 11/28/23 08:21 FiO2 2 11/26/23 05:00 Intake & Output 11/27/23 11/28/23 11/28/23 18:59 06:59 18:59 Intake Total 551 240 120 Output Total 705 275 500 Balance -154 -35 -380 Weight 45.359 kg Intake: IV 551 Oral 240 120 Blood Product 0 Unit 0 Output: Urine 675 275 500 Estimated Blood Loss 30 Other: Voiding Method Indwelling Catheter Indwelling Catheter - Labs CBC & Chem 7: 11/28/23 13:00 11/28/23 13:01 Labs: Abnormal Lab Results - Last 24 Hours (Table) 11/27/23 11/27/23 11/27/23 Range/Units 07:54 07:54 07:54 WBC 11.5 H (3.8-10.6) k/uL RBC 3.37 L (3.80-5.40) m/uL Hgb 10.9 L (11.4-16.0) gm/dL Hct 33.5 L (34.0-46.0) % Plt Count 80 L (150-450) k/uL BUN 24 H (7-17) mg/dL Calcium 8.1 L (8.4-10.2) mg/dL Troponin I 0.336 H* (0.000-0.034) ng/mL
[2023-11-28 13:16] LABS: Basophils % (A) 1 %; Eosinophils # (A) 0.2 k/uL (0-0.7); Eosinophils % (A) 2 %; HCT 28.2 % (34.0-46.0); Hypochromasia Slight; Lymphocytes # (A) 0.6 k/uL (1.0-4.8); Lymphocytes % (A) 8 %; MCH 32.9 pg (25.0-35.0); MCHC 32.8 g/dL (31.0-37.0); MCV 100.5 fL (80.0-100.0); Mean Platelet Volume 9.7; Monocytes # (A) 0.4 k/uL (0-1.0); Monocytes % (A) 5 %; Neutrophils # (A) 6.4 k/uL (1.3-7.7); Neutrophils % (A) 82 %; RBC 2.81 m/uL (3.80-5.40); RDW 13.2 % (11.5-15.5); WBC 7.8 k/uL (3.8-10.6)
[2023-11-28 13:29] LABS: HGB 9.2 gm/dL (11.4-16.0); Platelet Count 81 k/uL (150-450)
[2023-11-28 13:31] LABS: ALT 112 U/L (4-34); AST 73 U/L (14-36); African American GFR (CKD) >90 (>60 ml/min/1.73 sqM); Albumin 2.6 g/dL (3.5-5.0); Alkaline Phosphatase 116 U/L (38-126); Anion Gap 7 mmol/L; Blood Urea Nitrogen 22 mg/dL (7-17); Calcium 7.3 mg/dL (8.4-10.2); Carbon Dioxide 22 mmol/L (22-30); Chloride 109 mmol/L (98-107); Glucose 151 mg/dL (74-99); Non-African American GFR(CKD) 80 (>60 ml/min/1.73 sqM); Potassium 3.1 mmol/L (3.5-5.1); Sodium 138 mmol/L (137-145); Total Bilirubin 0.8 mg/dL (0.2-1.3); Total Protein 4.9 g/dL (6.3-8.2)
--- NOTE | 2023-11-28 13:44 | P.PN ---
Subjective Progress Note Date: 11/28/23 Principal diagnosis: Status post left hip hemiarthroplasty Patient evaluated at bedside today, she has multiple family members present. She is resting comfortably, she sitting up in her chair eating lunch. She states the pain is well-controlled. She denies headaches, lightheadedness, chest pain or shortness of breath Objective - Vital Signs Vital signs: Vital Signs Temp 97.9 F 11/28/23 12:57 Pulse 76 11/28/23 12:57 Resp 18 11/28/23 12:57 BP 133/60 11/28/23 12:57 Pulse Ox 94 L 11/28/23 12:57 FiO2 2 11/26/23 05:00 Intake & Output 11/27/23 11/28/23 11/28/23 18:59 06:59 18:59 Intake Total 551 240 240 Output Total 705 275 500 Balance -154 -35 -260 Weight 45.359 kg Intake: IV 551 Oral 240 240 Blood Product 0 Unit 0 Output: Urine 675 275 500 Estimated Blood Loss 30 Other: Voiding Method Indwelling Catheter Indwelling Catheter Indwelling Catheter - Exam Left lower extremity Incision is clean, dry, and intact. The foam dressing is in good condition. There is minimal soft tissue swelling and ecchymosis surrounding the medial and lateral aspects of the incision. Calf is soft, no tenderness with palpation. Plantar flexion, dorsiflexion, EHL, FHL are intact. Sensory exam to light touch throughout the extremity is intact, dorsal pedis pulses 2+. - Labs CBC & Chem 7: 11/28/23 13:00 11/28/23 13:01 Labs: Abnormal Lab Results - Last 24 Hours (Table) 11/28/23 11/28/23 Range/Units 13: 13: RBC 2.81 L (3.80-5.40) m/uL Hgb 9.2 L D (11.4-16.0) gm/dL Hct 28.2 L (34.0-46.0) % MCV 100.5 H (80.0-100.0) fL Plt Count 81 L (150-450) k/uL Lymphocytes # 0.6 L (1.0-4.8) k/uL Potassium 3.1 L (3.5-5.1) mmol/L Chloride 109 H (98-107) mmol/L BUN 22 H (7-17) mg/dL Glucose 151 H (74-99) mg/dL Calcium 7.3 L (8.4-10.2) mg/dL AST 73 H (14-36) U/L ALT 112 H (4-34) U/L Total Protein 4.9 L (6.3-8.2) g/dL Albumin 2.6 L (3.5-5.0) g/dL Assessment and Plan Assessment: Postoperative day #1 status post left hip hemiarthroplasty Acute blood loss anemia, expected surgical outcome Plan: Pain control, continue low-dose medications DVT prophylaxis, continue current medications Weight-bear as tolerated, utilize walker. Abductor pillow while in bed PT/OT Encourage incentive spirometer Medical recommendations Ferrous sulfate 325 mg twice a day for anemia we'll continue to follow during hospital stay Time with Patient: Less than 30
[2023-11-28] MEDS ORDERED: POTASSIUM CHLORIDE ER 20 MEQ TAB.ER PO STA (15:41)
[2023-11-28] MEDS: FERROUS SULFATE 325 MG TAB PO SCH (16:49)
[2023-11-28] MEDS: SENNOSIDES-DOCUSATE SODIUM 1 EACH TAB PO SCH (21:41)
[2023-11-29] MEDS: SODIUM CHLORIDE 0.9% 1,000 ML IV SCH ×2 (06:27→15:29)
[2023-11-29] MEDS: FERROUS SULFATE 325 MG TAB PO SCH ×2 (06:28→16:54)
[2023-11-29] MEDS: ENOXAPARIN 40 MG/0.4 ML SYRINGE SQ SCH (07:42)
[2023-11-29] MEDS: ACETAMINOPHEN TAB 325 MG TAB PO SCH ×3 (07:42→21:34)
[2023-11-29] MEDS: MEMANTINE 5 MG TAB PO SCH ×2 (07:42→21:34)
[2023-11-29] MEDS: ASPIRIN 81 MG PO SCH (07:42)
[2023-11-29] MEDS: METOPROLOL SUCCINATE (ER) 25 MG TAB.ER.24H PO SCH (07:42)
[2023-11-29] MEDS: ATORVASTATIN 20 MG TAB PO SCH (07:43)
[2023-11-29] MEDS: FAMOTIDINE 20 MG TAB PO SCH (07:43)
[2023-11-29 09:12] LABS: HGB 8.6 gm/dL (11.4-16.0); Hypochromasia Slight; MCHC 32.9 g/dL (31.0-37.0); MCV 100.2 fL (80.0-100.0); Mean Platelet Volume 8.8; RDW 13.2 % (11.5-15.5); WBC 8.5 k/uL (3.8-10.6)
[2023-11-29] MEDS: LACTATED RINGERS 1,000 ML IV SCH (09:16)
[2023-11-29 09:31] LABS: African American GFR (CKD) >90 (>60 ml/min/1.73 sqM); Anion Gap 11 mmol/L; Blood Urea Nitrogen 23 mg/dL (7-17); Calcium 7.4 mg/dL (8.4-10.2); Carbon Dioxide 18 mmol/L (22-30); Chloride 109 mmol/L (98-107); Glucose 158 mg/dL (74-99); Magnesium 1.9 mg/dL (1.6-2.3); Non-African American GFR(CKD) 84 (>60 ml/min/1.73 sqM); Potassium 3.4 mmol/L (3.5-5.1); Sodium 138 mmol/L (137-145)
[2023-11-29 09:43] LABS: Platelet Count 90 k/uL (150-450)
[2023-11-29] MEDS ORDERED: POTASSIUM CHLORIDE ER 20 MEQ TAB.ER PO STA (10:05)
--- NOTE | 2023-11-29 11:26 | P.PN ---
Subjective Progress Note Date: 11/29/23 Hospital course: Patient is a very pleasant 88-year-old female with a past medical history of cognitive impairment, hypertension, and dyslipidemia. She presented to the emergency department on 11/26/23 after having a fall at her home. She underwent full evaluation. CT head negative for acute intercranial process showing mild scalp swelling. X-ray left hip showing foreshortening of the left femoral neck with no definite acute fracture line visible. Chest x-ray showing hyperinfl ation with coarse interstitial markings suggesting mild emphysema but negative for acute process, focal infiltrate or consolidation. CT left hip was completed secondary to inconclusive x-ray which revealed an acute impacted fracture of the subcapital left femoral neck. EKG was completed showing sinus tachycardia with a left bundle branch block with prolonged QRS duration 137 ms. Labs were compl eted and reviewed. CBC revealed leukocytosis with WBC count of 11.9 and thrombocytopenia with platelet count of 88. BMP showing prerenal azotemia with BUN of 38 otherwise no significant abnormalities. Liver profile showing elevated AST of 46 otherwise normal findings. Initial troponin 0.055. Patient was admitted under orthopedic surgery team and we were consulted along with cardiology for continued medical management. Troponins were trended resulting in 0.055, 0.133, and 0.336. She was evaluated by cardiology for surgical clearance, cardiology stated patient is at high risk to undergo surgery from cardiac standpoint however give no absolute contraindications to go through with urgent surgical repair of left femoral neck fracture. Echocardiogram was completed showing a preserved EF of 50-55% with a dilated right ventricle, moderate to severe tricuspid regurgitation, and moderate pulmonary hypertension. On 11/27/23 patient underwent surgical repair of displaced left femoral neck fracture and underwent left hip hemiarthroplasty with Dr. Grande. Physical exam: Patient seen and fully evaluated at the bedside this morning. Patient is postoperative day 2. Patient resting comfortably at this time with sitter at bedside maintaining safety. Patient has history of cognitive impairment with episodes of confusion. Patient with increased confusion overnight and is currently back to baseline and no 2-3. Vital signs reviewed and stable. General: Nontoxic, no distress and appears stated age. Derm: Skin warm and dry, normal coloration for ethnicity. Head: Normocephalic and symmetric with hematoma left lateral forehead/temporal region and bruising to left lateral neck into chest. Eyes: EOMs intact, no lid lag, and anicteric sclera Mouth: no lip lesions, mucus membranes moist Cardiovascular: regular rate and rhythm with normal S1S2, systolic murmur, positive posterior tibial pulses bilaterally, and cap refill < 2 seconds. Lungs: Respirations even, regular, and unlabored on room air. Lungs CTA bilaterally, no rhonchi, no rales, no wheezing, and no accessory muscle usage. Abdominal: soft, nontender to palpation, no guarding, no appreciable organomegaly. Sanchez catheter in place. Ext: Movement and sensation intact. No gross muscle atrophy, no edema, no contractures Neuro: Speech clear, face symmetrical and CN II-XII grossly intact with no noted focal neuro deficits Psych: Alert and oriented x2-3. Appropriate and pleasant affect. Assessment and Plan of Care: 88-year-old female with left femoral neck fracture after mechanical fall at home Left femoral neck fracture Status post left hip hemiarthroplasty -Management per primary admitting orthopedic surgery team including DVT prophylaxis, pain management, wound/dressing management, weightbearing, and PT/OT. Elevated Troponins, of unclear significance - Echocardiogram was completed showing a preserved EF of 50-55% with a dilated right ventricle, moderate to severe tricuspid regurgitation, and moderate pulmonary hypertension. -Cardiology evaluated, no plans for intervention or further recommendations at this time. Cardiology clearing patient from cardiac perspective and signing off patient at this time. Thrombocytopenia, undetermined etiology Acute blood loss Anemia, expected and stable finding status post femur fracture and surgical repair -No indication for transfusion of PRBCs at this time with hemoglobin stable at 8.6 -Platelet count is 90 status post transfusion of 1 unit of platelets. -Thrombocytopenia appears chronic but worsening since 2020. -Follow CBC HTN -Patient to continue daily medication regimen with metoprolol 12.5 mg once daily HLD -Patient to continue daily medication regimen with Atrovastatin 20 mg daily Cognitive impairment -Provide safe and supportive environment with assistance and redirection as needed -Continue daily medication regimen with Memantine 7.5 mg twice daily. Data reviewed: Morning labs reviewed. CBC showing persistent bicytopenia with hemoglobin of 8.6 and platelet count of 90. Vital signs reviewed. Blood pressure 137/70, heart rate 100, respiratory rate 16, temp 98.0F, SpO2 of 97% on room air. Thank you for allowing us to participate in the care of this pleasant patient. Do not hesitate to contact us with questions. Someone can be reached from the [facility] hospitalist group all hours of the day at [phone] or via perfect serve. Patient was seen independently by Nurse Pracitioner. This document was prepared using [employer] dictation software. Please allow for errors in feeder worker power unit operator, while rare they do occur. Rolando Weldon PHLEBOTOMY TECHNOLOGIST rendered care for this patient independently, reviewed the findings and plan as documented in the note above. I did not physically speak with or examine the patient on this date. Objective - Vital Signs Vital signs: Vital Signs Temp 98.0 F 11/29/23 07:39 Pulse 100 11/29/23 07:39 Resp 16 11/29/23 07:39 BP 137/70 11/29/23 07:39 Pulse Ox 97 11/29/23 08:09 FiO2 2 11/26/23 05:00 Intake & Output 11/28/23 11/29/23 11/29/23 18:59 06:59 18:59 Intake Total 840 240 Output Total 500 600 Balance 340 -360 Intake: Intake, IV Titration 600 Amount Sodium Chloride 0.9% 1, 600 000 ml @ 75 mls/hr IV . [id number] [facility] Rx#:[id number] Oral 240 240 Output: Urine 500 600 Other: Voiding Method Indwelling Catheter Indwelling Catheter - Labs CBC & Chem 7: 12/01/23 09:00 12/01/23 09:00 Labs: Abnormal Lab Results - Last 24 Hours (Table) 11/28/23 11/28/23 Range/Units 13:00 13:01 RBC 2.81 L (3.80-5.40) m/uL Hgb 9.2 L D (11.4-16.0) gm/dL Hct 28.2 L (34.0-46.0) % MCV 100.5 H (80.0-100.0) fL Plt Count 81 L (150-450) k/uL Lymphocytes # 0.6 L (1.0-4.8) k/uL Potassium 3.1 L (3.5-5.1) mmol/L Chloride 109 H (98-107) mmol/L BUN 22 H (7-17) mg/dL Glucose 151 H (74-99) mg/dL Calcium 7.3 L (8.4-10.2) mg/dL AST 73 H (14-36) U/L ALT 112 H (4-34) U/L Total Protein 4.9 L (6.3-8.2) g/dL Albumin 2.6 L (3.5-5.0) g/dL
--- NOTE | 2023-11-29 12:53 | P.PN ---
Subjective Progress Note Date: 11/29/23 Principal diagnosis: Status post left hip hemiarthroplasty Patient evaluated at bedside today, she has multiple family members present. She is resting comfortably, she sitting up in her chair eating lunch. She states the pain is well-controlled. She denies headaches, lightheadedness, chest pain or shortness of breath Objective - Vital Signs Vital signs: Vital Signs Temp 98.0 F 11/29/23 07:39 Pulse 97 11/29/23 11:00 Resp 16 11/29/23 11:00 BP 133/68 11/29/23 11:00 Pulse Ox 95 11/29/23 11:00 FiO2 2 11/26/23 05:00 Intake & Output 11/28/23 11/29/23 11/29/23 18:59 06:59 18:59 Intake Total 840 240 0 Output Total 500 600 200 Balance 340 -360 -200 Intake: Intake, IV Titration 600 Amount Sodium Chloride 0.9% 1, 600 000 ml @ 75 mls/hr IV . [id number] [facility] Rx#:[id number] Oral 240 240 0 Output: Urine 500 600 200 Other: Voiding Method Indwelling Catheter Indwelling Catheter Indwelling Catheter - Exam Left lower extremity Incision is clean, dry, and intact. The foam dressing is in good condition. There is minimal soft tissue swelling and ecchymosis surrounding the medial and lateral aspects of the incision. Calf is soft, no tenderness with palpation. Plantar flexion, dorsiflexion, EHL, FHL are intact. Sensory exam to light touch throughout the extremity is intact, dorsal pedis pulses 2+. - Labs CBC & Chem 7: 11/29/23 08:29 11/29/23 08:29 Labs: Abnormal Lab Results - Last 24 Hours (Table) 11/28/23 11/28/23 11/29/23 Range/Units 13:00 13:01 08:29 RBC 2.81 L (3.80-5.40) m/uL Hgb 9.2 L D (11.4-16.0) gm/dL Hct 28.2 L (34.0-46.0) % MCV 100.5 H (80.0-100.0) fL Plt Count 81 L (150-450) k/uL Lymphocytes # 0.6 L (1.0-4.8) k/uL Potassium 3.1 L 3.4 L (3.5-5.1) mmol/L Chloride 109 H 109 H (98-107) mmol/L Carbon Dioxide 18 L (22-30) mmol/L BUN 22 H 23 H (7-17) mg/dL Glucose 151 H 158 H (74-99) mg/dL Calcium 7.3 L 7.4 L (8.4-10.2) mg/dL AST 73 H (14-36) U/L ALT 112 H (4-34) U/L Total Protein 4.9 L (6.3-8.2) g/dL Albumin 2.6 L (3.5-5.0) g/dL 11/29/23 Range/Units 08:29 RBC 2.60 L (3.80-5.40) m/uL Hgb 8.6 L (11.4-16.0) gm/dL Hct 26.0 L (34.0-46.0) % MCV 100.2 H (80.0-100.0) fL Plt Count 90 L (150-450) k/uL Lymphocytes # (1.0-4.8) k/uL Potassium (3.5-5.1) mmol/L Chloride (98-107) mmol/L Carbon Dioxide (22-30) mmol/L BUN (7-17) mg/dL Glucose (74-99) mg/dL Calcium (8.4-10.2) mg/dL AST (14-36) U/L ALT (4-34) U/L Total Protein (6.3-8.2) g/dL Albumin (3.5-5.0) g/dL Assessment and Plan Assessment: Postoperative day #2 status post left hip hemiarthroplasty Acute blood loss anemia, expected surgical outcome Plan: Pain control, continue low-dose medications DVT prophylaxis, continue current medications Weight-bear as tolerated, utilize walker. Abductor pillow while in bed PT/OT Encourage incentive spirometer Medical recommendations Ferrous sulfate 325 mg twice a day for anemia We'll continue to follow during hospital stay Time with Patient: Less than 30
[2023-11-29] MEDS: SENNOSIDES-DOCUSATE SODIUM 1 EACH TAB PO SCH (21:34)
[2023-11-30] MEDS: SODIUM CHLORIDE 0.9% 1,000 ML IV SCH (04:36)
[2023-11-30] MEDS: FERROUS SULFATE 325 MG TAB PO SCH ×2 (06:29→17:48)
[2023-11-30 09:34] LABS: Basophils % (A) 1 %; Eosinophils # (A) 0.4 k/uL (0-0.7); Eosinophils % (A) 4 %; HCT 25.4 % (34.0-46.0); HGB 8.3 gm/dL (11.4-16.0); Hypochromasia Slight; Lymphocytes % (A) 10 %; MCH 32.7 pg (25.0-35.0); MCHC 32.9 g/dL (31.0-37.0); MCV 99.6 fL (80.0-100.0); Mean Platelet Volume 9.9; Monocytes # (A) 0.7 k/uL (0-1.0); Monocytes % (A) 7 %; Neutrophils # (A) 7.5 k/uL (1.3-7.7); Neutrophils % (A) 77 %; Platelet Count 123 k/uL (150-450); RBC 2.55 m/uL (3.80-5.40); RDW 13.1 % (11.5-15.5); WBC 9.8 k/uL (3.8-10.6)
[2023-11-30] MEDS: METOPROLOL SUCCINATE (ER) 25 MG TAB.ER.24H PO SCH (10:04)
[2023-11-30] MEDS: FAMOTIDINE 20 MG TAB PO SCH (10:04)
[2023-11-30] MEDS: ACETAMINOPHEN TAB 325 MG TAB PO SCH ×3 (10:04→21:02)
[2023-11-30] MEDS: ASPIRIN 81 MG PO SCH (10:04)
[2023-11-30] MEDS: ATORVASTATIN 20 MG TAB PO SCH (10:04)
[2023-11-30] MEDS: MEMANTINE 5 MG TAB PO SCH ×2 (10:05→21:03)
[2023-11-30] MEDS: ENOXAPARIN 40 MG/0.4 ML SYRINGE SQ SCH (10:05)
[2023-11-30] MEDS: LACTATED RINGERS 1,000 ML IV SCH (10:42)
--- NOTE | 2023-11-30 13:43 | P.PN ---
Subjective Progress Note Date: 11/30/23 Hospital course: Patient is a very pleasant 88-year-old female with a past medical history of cognitive impairment, hypertension, and dyslipidemia. She presented to the emergency department on 11/26/23 after having a fall at her home. She underwent full evaluation. CT head negative for acute intercranial process showing mild scalp swelling. X-ray left hip showing foreshortening of the left femoral neck with no definite acute fracture line visible. Chest x-ray showing hyperinfl ation with coarse interstitial markings suggesting mild emphysema but negative for acute process, focal infiltrate or consolidation. CT left hip was completed secondary to inconclusive x-ray which revealed an acute impacted fracture of the subcapital left femoral neck. EKG was completed showing sinus tachycardia with a left bundle branch block with prolonged QRS duration 137 ms. Labs were compl eted and reviewed. CBC revealed leukocytosis with WBC count of 11.9 and thrombocytopenia with platelet count of 88. BMP showing prerenal azotemia with BUN of 38 otherwise no significant abnormalities. Liver profile showing elevated AST of 46 otherwise normal findings. Initial troponin 0.055. Patient was admitted under orthopedic surgery team and we were consulted along with cardiology for continued medical management. Troponins were trended resulting in 0.055, 0.133, and 0.336. She was evaluated by cardiology for surgical clearance, cardiology stated patient is at high risk to undergo surgery from cardiac standpoint however give no absolute contraindications to go through with urgent surgical repair of left femoral neck fracture. Echocardiogram was completed showing a preserved EF of 50-55% with a dilated right ventricle, moderate to severe tricuspid regurgitation, and moderate pulmonary hypertension. On 11/27/23 patient underwent surgical repair of displaced left femoral neck fracture and underwent left hip hemiarthroplasty with Dr. Grande. Physical exam: Patient seen and fully evaluated at the bedside this morning. Patient is postoperative day 3. She is resting comfortably and remains alert to person and place slightly confused to time and situation. Consider remains at bedside maintaining safety if patient has a history of cognitive impairment and has had episodes of increased confusion. Vital signs reviewed and stable. General: Nontoxic, no distress and appears stated age. Derm: Skin warm and dry, normal coloration for ethnicity. Head: Normocephalic and symmetric with hematoma left lateral forehead/temporal region and bruising to left lateral neck into chest. Eyes: EOMs intact, no lid lag, and anicteric sclera Mouth: no lip lesions, mucus membranes moist Cardiovascular: regular rate and rhythm with normal S1S2, systolic murmur, positive posterior tibial pulses bilaterally, and cap refill < 2 seconds. Lungs: Respirations even, regular, and unlabored on room air. Lungs CTA bilaterally, no rhonchi, no rales, no wheezing, and no accessory muscle usage. Abdominal: soft, nontender to palpation, no guarding, no appreciable organomegaly. Sanchez catheter in place. Ext: Movement and sensation intact. No gross muscle atrophy, no edema, no contractures Neuro: Speech clear, face symmetrical and CN II-XII grossly intact with no noted focal neuro deficits Psych: Alert and oriented x2-3. Appropriate and pleasant affect. Assessment and Plan of Care: 88-year-old female with left femoral neck fracture after mechanical fall at home Left femoral neck fracture Status post left hip hemiarthroplasty -Management per primary admitting orthopedic surgery team including DVT prophylaxis, pain management, wound/dressing management, weightbearing, and PT/OT. Elevated Troponins, of unclear significance - Echocardiogram was completed showing a preserved EF of 50-55% with a dilated right ventricle, moderate to severe tricuspid regurgitation, and moderate pulmonary hypertension. -Cardiology evaluated, no plans for intervention or further recommendations at this time. Cardiology clearing patient from cardiac perspective and signing off patient at this time. Thrombocytopenia, undetermined etiology Acute blood loss Anemia, expected and stable finding status post femur fracture and surgical repair -No indication for transfusion of PRBCs at this time with hemoglobin stable at 8.3 -Platelet count remains stable at 123 status post transfusion of 1 unit of platelets on 11/27/23. -Thrombocytopenia appears chronic but worsening since 2020. -Follow CBC HTN -Patient to continue daily medication regimen with metoprolol 12.5 mg once daily HLD -Patient to continue daily medication regimen with Atrovastatin 20 mg daily Cognitive impairment -Provide safe and supportive environment with assistance and redirection as needed -Continue daily medication regimen with Memantine 7.5 mg twice daily. Data reviewed: Morning labs reviewed. CBC is stable with hemoglobin of 8.3 and platelet count increasing to 123. Vital signs reviewed. Blood pressure 117/56, heart rate 103, respiratory rate 20, temp 98.0F, SpO2 of 96% on 2 L. Thank you for allowing us to participate in the care of this pleasant patient. Do not hesitate to contact us with questions. Someone can be reached from the [facility] hospitalist group all hours of the day at [phone] or via perfect serve. Patient was seen independently by Nurse Pracitioner. This document was prepared using Telepo dictation software. Please allow for errors in landscape laborer, while rare they do occur. Rolando Weldon CASE BRIEFER rendered care for this patient independently, reviewed the findings and plan as documented in the note above. I did not physically speak with or examine the patient on this date. Objective - Vital Signs Vital signs: Vital Signs Temp 97.9 F 11/29/23 15:21 Pulse 100 11/30/23 04:13 Resp 16 11/30/23 04:13 BP 157/72 11/30/23 04:13 Pulse Ox 96 11/30/23 04:13 FiO2 2 11/26/23 05:00 Intake & Output 11/29/23 11/30/23 11/30/23 18:59 06:59 18:59 Intake Total 120 540 Output Total 425 650 Balance -305 -110 Intake: Oral 120 540 Output: Urine 425 650 Other: Voiding Method Indwelling Catheter External Catheter - Labs CBC & Chem 7: 12/01/23 09:00 12/01/23 09:00 Labs: Abnormal Lab Results - Last 24 Hours (Table) 11/29/23 11/29/23 Range/Units 08:29 08:29 RBC 2.60 L (3.80-5.40) m/uL Hgb 8.6 L (11.4-16.0) gm/dL Hct 26.0 L (34.0-46.0) % MCV 100.2 H (80.0-100.0) fL Plt Count 90 L (150-450) k/uL Potassium 3.4 L (3.5-5.1) mmol/L Chloride 109 H (98-107) mmol/L Carbon Dioxide 18 L (22-30) mmol/L BUN 23 H (7-17) mg/dL Glucose 158 H (74-99) mg/dL Calcium 7.4 L (8.4-10.2) mg/dL
--- NOTE | 2023-11-30 15:07 | P.PN ---
Subjective Progress Note Date: 11/30/23 Principal diagnosis: Status post left hip hemiarthroplasty Patient evaluated at bedside today, she has family members present. She is resting comfortably, she sitting up in her chair eating lunch. She states the pain is well-controlled. She denies headaches, lightheadedness, chest pain or shortness of breath Objective - Vital Signs Vital signs: Vital Signs Temp 98.3 F 11/30/23 12:52 Pulse 92 11/30/23 12:52 Resp 20 11/30/23 12:52 BP 120/58 11/30/23 12:52 Pulse Ox 98 11/30/23 12:52 FiO2 2 11/26/23 05:00 Intake & Output 11/29/23 11/30/23 11/30/23 18:59 06:59 18:59 Intake Total 120 540 780 Output Total 425 650 Balance -305 -110 780 Weight 45.359 kg Intake: Intake, IV Titration 600 Amount Sodium Chloride 0.9% 1, 600 000 ml @ 75 mls/hr IV . [id number] [facility] Rx#:[id number] Oral 120 540 180 Output: Urine 425 650 Other: Voiding Method Indwelling Catheter External Catheter External Catheter # Bowel Movements 1 - Exam Left lower extremity Incision is clean, dry, and intact. The foam dressing is in good condition. There is minimal soft tissue swelling and ecchymosis surrounding the medial and lateral aspects of the incision. Calf is soft, no tenderness with palpation. Plantar flexion, dorsiflexion, EHL, FHL are intact. Sensory exam to light touch throughout the extremity is intact, dorsal pedis pulses 2+. - Labs CBC & Chem 7: 11/30/23 07:11 11/29/23 08:29 Labs: Abnormal Lab Results - Last 24 Hours (Table) 11/30/23 Range/Units 07:11 RBC 2.55 L (3.80-5.40) m/uL Hgb 8.3 L (11.4-16.0) gm/dL Hct 25.4 L (34.0-46.0) % Plt Count 123 L (150-450) k/uL Assessment and Plan Assessment: Postoperative day #3 status post left hip hemiarthroplasty Acute blood loss anemia, expected surgical outcome Plan: Pain control, continue low-dose medications DVT prophylaxis, continue current medications Weight-bear as tolerated, utilize walker. Abductor pillow while in bed PT/OT Encourage incentive spirometer Medical recommendations Ferrous sulfate 325 mg twice a day for anemia Discharge planning: Patient is orthopedically stable, patient is requiring 2 person for assist. Planning for discharge to subacute rehab on 12/01/2022 Time with Patient: Less than 30
[2023-11-30] MEDS: SENNOSIDES-DOCUSATE SODIUM 1 EACH TAB PO SCH (21:03)
[2023-12-01] MEDS: FERROUS SULFATE 325 MG TAB PO SCH (06:31)
[2023-12-01] MEDS: SODIUM CHLORIDE 0.9% 1,000 ML IV SCH (06:31)
[2023-12-01] MEDS: MEMANTINE 5 MG TAB PO SCH (08:34)
[2023-12-01] MEDS: ENOXAPARIN 40 MG/0.4 ML SYRINGE SQ SCH (08:34)
[2023-12-01] MEDS: METOPROLOL SUCCINATE (ER) 25 MG TAB.ER.24H PO SCH (08:35)
[2023-12-01] MEDS: ASPIRIN 81 MG PO SCH (08:35)
[2023-12-01] MEDS: FAMOTIDINE 20 MG TAB PO SCH (08:36)
[2023-12-01] MEDS: ACETAMINOPHEN TAB 325 MG TAB PO SCH (08:36)
[2023-12-01] MEDS: ATORVASTATIN 20 MG TAB PO SCH (08:36)
[2023-12-01 09:29] LABS: HCT 26.6 % (34.0-46.0); HGB 8.6 gm/dL (11.4-16.0); Hypochromasia Slight; MCH 32.1 pg (25.0-35.0); MCHC 32.4 g/dL (31.0-37.0); MCV 99.1 fL (80.0-100.0); Mean Platelet Volume 8.8; Platelet Count 169 k/uL (150-450); RBC 2.68 m/uL (3.80-5.40); RDW 13.8 % (11.5-15.5); WBC 9.2 k/uL (3.8-10.6)
[2023-12-01 09:39] LABS: ALT 84 U/L (4-34); AST 84 U/L (14-36); African American GFR (CKD) >90 (>60 ml/min/1.73 sqM); Albumin 2.4 g/dL (3.5-5.0); Alkaline Phosphatase 160 U/L (38-126); Anion Gap 4 mmol/L; Blood Urea Nitrogen 19 mg/dL (7-17); Calcium 7.8 mg/dL (8.4-10.2); Carbon Dioxide 25 mmol/L (22-30); Chloride 111 mmol/L (98-107); Glucose 115 mg/dL (74-99); Non-African American GFR(CKD) 90 (>60 ml/min/1.73 sqM); Potassium 3.5 mmol/L (3.5-5.1); Sodium 140 mmol/L (137-145); Total Protein 4.7 g/dL (6.3-8.2)
--- NOTE | 2023-12-01 10:17 | P.DS ---
Providers Date of admission: 11/26/23 03:23 Expected date of discharge: 12/01/23 Attending physician: Samuel Grande Consults: 11/26/23 03:23 Consult Physician Routine Consulting Provider: Abimael Diego Consult Reason/Comments: surgical clearance Do you want consulting provider notified?: Yes Primary care physician: Physician Nonstaff Hospital Course: Date of admission: 11/26/2023 Date of discharge: 12/01/2023 Admission diagnosis: Left hip femoral neck fracture Discharge diagnosis: same Attending physician: Dr. Grande Surgical procedures: Left hip hemiarthroplasty Brief history: Patient is a 88-year-old female with a history of left hip femoral neck fracture status post fall. At this point patient has failed conservative treatment measures and has opted to proceed with a elective left hip hemiarthroplasty. Hospital course: Details of patient's surgery can be found in operative report. Patient tolerated the procedure well and was subsequently transported to orthopedic floor. Patient's orthopeidc and medical care was provided daily. Patient had daily laboratory tests performed for evaluation of overall blood counts. Patient had daily physical therapy to include strengthening range of motion as well as education with walker ambulation. Patient was treated with Lovenox for their postoperative DVT prophylaxis during their inpatient stay. Patient was noted to have a relatively uneventful postoperative course. Patient reported satisfactory pain control with oral pain medications by postoperative day 4. Patient showed satisfactory progress with physical therapy. Patient moved steadily through the program and had no difficulty meeting the goals by postoperative day 4. Given patient's otherwise satisfactory course and having met physical therapy goals, plan is to discharge patient to rehab on postoperative day rehab. Discharge condition/disposition: Patient will be discharged to rehab in stable condition. Discharge medications: Instructions are given on resumption of patient's normal daily medications per primary care recommendation, in addition patient will be prescribed Tylenol; senna; Lovenox. Discharge instructions: 1. Wound care and infection precautions, keep incision dry and covered while showering, no lotions, creams, moisturizers. No soaking, tubs, pools, hottubs. Do not scrub over the incision. 2. Weight-bear as tolerated with walker / cane until follow-up. 3. Ice and elevate when necessary. Do not exceed 20 minutes per hour with ice pack. 4. Utilize compression sleeve until seen at first follow up appointment. 5. Nursing care. 6. Physical therapy. 7. Pain meds and anticoagulants per prescription. 8. Pain medication has potential to cause constipation. Increase oral fluid and fiber intake. Contact primary care provider if you have not had a bowel movement within 48 hours after discharge 9. No anti-inflammatory medication until discussed at first post operative visit, this including Motrin, Aleve, Mobic, Diclofenac. 10. Follow up in office at 2 weeks postop with Shamar Concepcion PA-C / Brett Murrell PA-C 11. Follow up with your primary care doctor 7-10 days after discharge. 12. Contact [facility] with any questions, . Keep silver foam dressing clean, dry, intact. While showering, cover dressing with Saran wrap. Dressing may be removed on 12/04/2023. Okay to shower directly over incision once dressing is removed. Assessment: Left hip femoral neck fracture Procedures: Left hip hemiarthroplasty Patient Condition at Discharge: Good Plan - Discharge Summary Discharge Rx Participant: No New Discharge Prescriptions: New Aspirin 81 mg PO DAILY tab Famotidine [Pepcid] 20 mg PO DAILY tab Metoprolol Succinate (ER) [Toprol XL] 12.5 mg PO DAILY tab Ferrous Sulfate [Iron (65 MG Elemental)] 325 mg PO BID-W/MEALS tab Enoxaparin [Lovenox] 30 mg SQ DAILY #28 each Acetaminophen Tab [Tylenol] 650 mg PO Q6H #32 tab Continue Atorvastatin [Lipitor] 20 mg PO DAILY Memantine HCl [Memantine HCl ER] 21 mg PO DAILY Discharge Medication List Atorvastatin [Lipitor] 20 mg PO DAILY 11/26/23 [History] Memantine HCl [Memantine HCl ER] 21 mg PO DAILY 11/26/23 [History] Aspirin 81 mg PO DAILY tab 11/30/23 [Rx] Famotidine [Pepcid] 20 mg PO DAILY tab 11/30/23 [Rx] Ferrous Sulfate [Iron (65 MG Elemental)] 325 mg PO BID-W/MEALS tab 11/30/23 [Rx] Metoprolol Succinate (ER) [Toprol XL] 12.5 mg PO DAILY tab 11/30/23 [Rx] Acetaminophen Tab [Tylenol] 650 mg PO Q6H #32 tab 12/01/23 [Rx] Enoxaparin [Lovenox] 30 mg SQ DAILY #28 each 12/01/23 [Rx] Follow up Appointment(s)/Referral(s): Nonstaff,Physician [Primary Care Provider] - 1-2 days Harjinder Concepcion PAC [PHYSICIAN HOSPICE DIRECTOR] - 2 Weeks Activity/Diet/Wound Care/Special Instructions: Discharge instructions: 1. Wound care and infection precautions, keep incision dry and covered while showering, no lotions, creams, moisturizers. No soaking, tubs, pools, hottubs. Do not scrub over the incision. 2. Weight-bear as tolerated with walker / cane until follow-up. 3. Ice and elevate when necessary. Do not exceed 20 minutes per hour with ice pack. 4. Utilize compression sleeve until seen at first follow up appointment. 5. Nursing care. 6. Physical therapy. 7. Pain meds and anticoagulants per prescription. 8. Pain medication has potential to cause constipation. Increase oral fluid and fiber intake. Contact primary care provider if you have not had a bowel movement within 48 hours after discharge 9. No anti-inflammatory medication until discussed at first post operative visit, this including Motrin, Aleve, Mobic, Diclofenac. 10. Follow up in office at 2 weeks postop with Shamar Concepcion PA-C / Brett Murrell PA-C 11. Follow up with your primary care doctor 7-10 days after discharge. 12. Contact [facility] with any questions, . Keep silver foam dressing clean, dry, intact. While showering, cover dressing with Saran wrap. Dressing may be removed on 12/04/2023. Okay to shower directly over incision once dressing is removed. Discharge Disposition: TRANSFER TO SNF/ECF
[2023-12-01 11:51] VITALS: BP 123/62; PULSE 95; RESP 16; TEMP 97.2
--- NOTE | 2023-12-01 13:15 | P.PN ---
Subjective Progress Note Date: 12/01/23 Principal diagnosis: Left hip femoral neck fracture Patient was seen at bedside this morning sitting up in chair with legs elevated and silver foam dressing present over left lateral hip. Nursing was present during counter. Patient says she has some pain in the left hip however it has been improving over the past few days since surgery. Patient denies any other issues at this time. Patient is looking forward to going to rehab later today. Objective - Vital Signs Vital signs: Vital Signs Temp 98.2 F 12/01/23 08:28 Pulse 86 12/01/23 08:28 Resp 18 12/01/23 08:28 BP 148/77 12/01/23 08:28 Pulse Ox 96 12/01/23 08:28 FiO2 2 11/26/23 05:00 Intake & Output 11/30/23 12/01/23 12/01/23 18:59 06:59 18:59 Intake Total 780 240 118 Output Total 300 350 Balance 480 -110 118 Weight 45.359 kg Intake: Intake, IV Titration 600 Amount Sodium Chloride 0.9% 1, 600 000 ml @ 75 mls/hr IV . [id number] [facility] Rx#:[id number] Oral 180 240 118 Output: Urine 300 350 Other: Voiding Method External Catheter External Catheter External Catheter # Voids 1 # Bowel Movements 1 1 1 - Exam Left lower extremity: Incision is clean, dry, and intact. The silver foam dressing is in good condition. There is minimal soft tissue swelling and ecchymosis surrounding the medial and lateral aspects of the incision. Calf is soft, no tenderness with palpation. Plantar flexion, dorsiflexion, EHL, FHL are intact. Sensory exam to light touch throughout the extremity is intact, dorsal pedis pulses 2+. - Labs CBC & Chem 7: 12/01/23 09:00 12/01/23 09:00 Labs: Abnormal Lab Results - Last 24 Hours (Table) 12/01/23 12/01/23 Range/Units 09:00 09:00 RBC 2.68 L (3.80-5.40) m/uL Hgb 8.6 L (11.4-16.0) gm/dL Hct 26.6 L (34.0-46.0) % Chloride 111 H (98-107) mmol/L BUN 19 H (7-17) mg/dL Creatinine 0.45 L (0.52-1.04) mg/dL Glucose 115 H (74-99) mg/dL Calcium 7.8 L (8.4-10.2) mg/dL AST 84 H (14-36) U/L ALT 84 H (4-34) U/L Alkaline Phosphatase 160 H (38-126) U/L Total Protein 4.7 L (6.3-8.2) g/dL Albumin 2.4 L (3.5-5.0) g/dL Assessment and Plan Assessment: 1. Left hip femoral neck fracture - Postop day #4 status post left hip hemiarthroplasty Plan: 1. Left hip femoral neck fracture - patient stable at bedside this morning. Silver foam dressing is clean, dry, intact. Discharge to rehab today. 2. Appreciate medical management 3. Pain management - Tylenol 4. DVT prophylaxis - Lovenox 5. GI prophylaxis - Pepcid 6. PT/OT - weightbearing as tolerated with walker and assistance 7. Encourage incentive spirometer use 8. Discharge planning - discharge to rehab today Time with Patient: Less than 30
--- NOTE | 2023-12-01 14:17 | P.PN ---
Subjective Progress Note Date: 12/01/23 Hospital course: Patient is a very pleasant 88-year-old female with a past medical history of cognitive impairment, hypertension, and dyslipidemia. She presented to the emergency department on 11/26/23 after having a fall at her home. She underwent full evaluation. CT head negative for acute intercranial process showing mild scalp swelling. X-ray left hip showing foreshortening of the left femoral neck with no definite acute fracture line visible. Chest x-ray showing hyperinfl ation with coarse interstitial markings suggesting mild emphysema but negative for acute process, focal infiltrate or consolidation. CT left hip was completed secondary to inconclusive x-ray which revealed an acute impacted fracture of the subcapital left femoral neck. EKG was completed showing sinus tachycardia with a left bundle branch block with prolonged QRS duration 137 ms. Labs were compl eted and reviewed. CBC revealed leukocytosis with WBC count of 11.9 and thrombocytopenia with platelet count of 88. BMP showing prerenal azotemia with BUN of 38 otherwise no significant abnormalities. Liver profile showing elevated AST of 46 otherwise normal findings. Initial troponin 0.055. Patient was admitted under orthopedic surgery team and we were consulted along with cardiology for continued medical management. Troponins were trended resulting in 0.055, 0.133, and 0.336. She was evaluated by cardiology for surgical clearance, cardiology stated patient is at high risk to undergo surgery from cardiac standpoint however give no absolute contraindications to go through with urgent surgical repair of left femoral neck fracture. Echocardiogram was completed showing a preserved EF of 50-55% with a dilated right ventricle, moderate to severe tricuspid regurgitation, and moderate pulmonary hypertension. On 11/27/23 patient underwent surgical repair of displaced left femoral neck fracture and underwent left hip hemiarthroplasty with Dr. Grande. Physical exam: Patient is postoperative day 4. She was seen and evaluated at bedside this morning. Patient sitting up in the chair and appears to be doing well this morning. Vital signs reviewed and stable. General: Nontoxic, no distress and appears stated age. Derm: Skin warm and dry, normal coloration for ethnicity. Head: Normocephalic and symmetric with hematoma left lateral forehead/temporal region and bruising to left lateral neck into chest. Eyes: EOMs intact, no lid lag, and anicteric sclera Mouth: no lip lesions, mucus membranes moist Cardiovascular: regular rate and rhythm with normal S1S2, systolic murmur, positive posterior tibial pulses bilaterally, and cap refill < 2 seconds. Lungs: Respirations even, regular, and unlabored on room air. Lungs CTA bilaterally, no rhonchi, no rales, no wheezing, and no accessory muscle usage. Abdominal: soft, nontender to palpation, no guarding, no appreciable organomegaly. Sanchez catheter in place. Ext: Movement and sensation intact. No gross muscle atrophy, no edema, no contractures Neuro: Speech clear, face symmetrical and CN II-XII grossly intact with no noted focal neuro deficits Psych: Alert and oriented x2-3. Appropriate and pleasant affect. Assessment and Plan of Care: 88-year-old female with left femoral neck fracture after mechanical fall at home Left femoral neck fracture Status post left hip hemiarthroplasty -Management per primary admitting orthopedic surgery team including DVT prophylaxis, pain management, wound/dressing management, weightbearing, and PT/OT. Elevated Troponins, of unclear significance - Echocardiogram was completed showing a preserved EF of 50-55% with a dilated right ventricle, moderate to severe tricuspid regurgitation, and moderate pulmonary hypertension. -Cardiology evaluated, no plans for intervention or further recommendations at this time. Cardiology clearing patient from cardiac perspective and signing off patient at this time. Thrombocytopenia, undetermined etiology Acute blood loss Anemia, expected and stable finding status post femur fracture and surgical repair -No indication for transfusion of PRBCs at this time with hemoglobin stable at 8.3 -Platelet count remains stable at 123 status post transfusion of 1 unit of platelets on 11/27/23. -Thrombocytopenia appears chronic but worsening since 2020. -Follow CBC HTN -Patient to continue daily medication regimen with metoprolol 12.5 mg once daily HLD -Patient to continue daily medication regimen with Atrovastatin 20 mg daily Cognitive impairment -Provide safe and supportive environment with assistance and redirection as ne eded -Continue daily medication regimen with Memantine 7.5 mg twice daily. Data reviewed: Vital signs reviewed and stable. Blood pressure 148/77, heart rate 86, respiratory rate 18, temp 98.2F, SpO2 of 96% on 2 L. Labs reviewed and stable. CBC showing stable normocytic anemia with hemoglobin of 8.6. BMP showing no significant abnormalities. Magnesium normal findings at 2.0. Liver profile showing slight transaminitis with AST of 84, ALT of 84, and alkaline phosphatase of 160. Patient is medically optimized for discharge at this time with no further recommendations. Patient may be discharged once cleared by primary admitting orthopedic surgery team. Thank you for allowing us to participate in the care of this pleasant patient. Do not hesitate to contact us with questions. Someone can be reached from the [facility] hospitalist group all hours of the day at [phone] or via [employer] serve. Patient was seen independently by Nurse Pracitioner. This document was prepared using [employer] dictation software. Please allow for errors in dry curer, while rare they do occur. Rolando Weldon NP rendered care for this patient independently, reviewed the findings and plan as documented in the note above. I did not physically speak with or examine the patient on this date. Objective - Vital Signs Vital signs: Vital Signs Temp 96.6 F L 11/30/23 15:45 Pulse 82 12/01/23 03:59 Resp 18 12/01/23 03:59 BP 157/72 12/01/23 03:59 Pulse Ox 98 12/01/23 03:59 FiO2 2 11/26/23 05:00 Intake & Output 11/30/23 12/01/23 12/01/23 18:59 06:59 18:59 Intake Total 780 240 Output Total 300 350 Balance 480 -110 Weight 45.359 kg Intake: Intake, IV Titration 600 Amount Sodium Chloride 0.9% 1, 600 000 ml @ 75 mls/hr IV . [id number] [facility] Rx#:[id number] Oral 180 240 Output: Urine 300 350 Other: Voiding Method External Catheter External Catheter # Bowel Movements 1 1 - Labs CBC & Chem 7: 12/01/23 09:00 12/01/23 09:00 Labs: Abnormal Lab Results - Last 24 Hours (Table) 11/30/23 Range/Units 07:11 RBC 2.55 L (3.80-5.40) m/uL Hgb 8.3 L (11.4-16.0) gm/dL Hct 25.4 L (34.0-46.0) % Plt Count 123 L (150-450) k/uL
[2023-12-01] MEDS ORDERED: FAMOTIDINE 20 MG TAB PO SCH (21:00)
== END 2023-12-01 13:39 | DRG 522 ==
LOC: EC 00:24 → 4SSUR 03:23 → 3SCARD 09:03
PROVIDERS: ADMIT Orthopaedic Surgery; ATTEND Orthopaedic Surgery
PROC: 0SRS0JA Replacement of Left Hip Joint, Femoral Surface with Synthetic Substitute, Uncemented, Open Approach (ICD-10-PCS; principal; 2023-11-27 12:30)
DX: S72.012A Unspecified intracapsular fracture of left femur, initial encounter for closed fracture (principal); D62 Acute posthemorrhagic anemia; J44.9 Chronic obstructive pulmonary disease, unspecified; I10 Essential (primary) hypertension; E78.5 Hyperlipidemia, unspecified; M19.90 Unspecified osteoarthritis, unspecified site; K21.9 Gastro-esophageal reflux disease without esophagitis; R41.3 Other amnesia; D69.6 Thrombocytopenia, unspecified; Z66 Do not resuscitate; S00.83XA Contusion of other part of head, initial encounter; F03.90 Unspecified dementia, unspecified severity, without behavioral disturbance, psychotic disturbance, mood disturbance, and anxiety; I07.1 Rheumatic tricuspid insufficiency; W01.0XXA Fall on same level from slipping, tripping and stumbling without subsequent striking against object, initial encounter; I27.20 Pulmonary hypertension, unspecified; I44.7 Left bundle-branch block, unspecified; Z79.82 Long term (current) use of aspirin; Z79.899 Other long term (current) drug therapy; Y92.000 Kitchen of unspecified non-institutional (private) residence as the place of occurrence of the external cause; Z90.710 Acquired absence of both cervix and uterus; Z91.81 History of falling
CPT/HCPCS: 70450; 71045; 73501; 73502; 80048; 80053; 81001; 82550; 83735; 84484; 85025; 85027; 85610; 85730; 86850; 86900; 86901; 93005; 93306; 94760; 96361; 96374; 96376; 99285

== ENCOUNTER 2024-01-11 16:04 | Emergency (ER) | payer MEDICARE ==
[2024-01-11 16:40] VITALS: TEMP 99.9
[2024-01-11] MEDS: ACETAMINOPHEN TAB 325 MG TAB PO STA (16:51)
--- NOTE | 2024-01-11 16:54 | ED ---
General Adult HPI - General Chief complaint: Fall Stated complaint: L Leg Injury Time Seen by Provider: 01/11/24 16:13 Source: patient, family, EMS, RN notes reviewed Mode of arrival: EMS Limitations: no limitations - History of Present Illness Initial comments: Patient is a pleasant 88-year-old female presenting to the emergency department with left knee injury. Patient is at nursing facility. Patient did have a recent fall with hip fracture. Patient fell out of bed again today. Patient is having discomfort left knee. X-rays were done that question tibial plateau fracture and recommendation was made for CT scan. Patient does complain of some discomfort of her left knee otherwise no complaints. No reported head injury. Patient does have recent COVID-19 infection, diagnosed less than a week ago. Patient's cough has nearly resolved. - Related Data Home Medications Medication Instructions Recorded Confirmed Atorvastatin [Lipitor] 20 mg PO HS@2130 11/26/23 01/11/24 Acetaminophen Tab [Tylenol] 650 mg PO Q6H 01/11/24 01/11/24 Ascorbic Acid [Vitamin C] 1,000 mg PO DAILY@169901/11/24 01/11/24 Aspirin 81 mg PO DIRECTED 01/11/24 01/11/24 Cholecalciferol (Vitamin D3) 50 mcg PO DAILY@169901/11/24 01/11/24 [Vitamin D3 (50 Mcg = 2000 Iu)] Cyanocobalamin [Vitamin B-12] 500 mcg PO DAILY@169901/11/24 01/11/24 Enoxaparin [Lovenox] 40 mg SQ DAILY@0800 01/11/24 01/11/24 Ensure Enlive 120 ml PO TID@0800,1200,0 01/11/24 01/11/24 Famotidine [Pepcid] 20 mg PO DAILY@0800 01/11/24 01/11/24 Ferrous Sulfate [Iron (65 MG 325 mg PO BID@0800,1700 01/11/24 01/11/24 Elemental)] Folic Acid 1 mg PO DAILY@169901/11/24 01/11/24 INSULIN ASPART (NovoLOG) [NovoLOG See Protocol SQ ACHS 01/11/24 01/11/24 (formulary)] Ipratropium-Albuterol Nebulize 3 ml INHALATION RT-Q6H 01/11/24 01/11/24 [Duoneb 0.5 mg-3 mg/3 ml Soln] Magnesium Hydroxide [Milk of 7,200 mg PO Q48H PRN 01/11/24 01/11/24 Magnesia Concentrate] Memantine HCl [Namenda Xr] 14 mg PO DAILY@0800 01/11/24 01/11/24 Metoprolol Succinate (ER) [Toprol 12.5 mg PO DAILY@0800 01/11/24 01/11/24 XL] Multivit-Min/FA/Lycopen/Lutein 1 tab PO DAILY@1700 01/11/24 01/11/24 [Centrum Silver Tablet] Na Phos,M-B/Na Phos,Di-Ba [Fleet 133 ml RECTAL DAILY PRN 01/11/24 01/11/24 Adult] Zinc Sulfate [Orazinc] 220 mg PO DAILY@1700 01/11/24 01/11/24 bisacodyL [Dulcolax] 10 mg RECTAL DAILY PRN 01/11/24 01/11/24 guaiFENesin SYRUP 100MG/5ML 200 mg PO Q4H PRN 01/11/24 01/11/24 [Robitussin] polyethylene glycoL 3350 [Miralax] 17 gm PO Q72H PRN 01/11/24 01/11/24 Allergies Allergy/AdvReac Type Severity Reaction Status Date / Time Sulfa (Sulfonamide Allergy Unknown Verified 01/11/24 17:39 Antibiotics) Review of Systems ROS Statement: Those systems with pertinent positive or pertinent negative responses have been documented in the HPI. ROS Other: All systems not noted in ROS Statement are negative. Constitutional: Reports: as per HPI, fever Eyes: Denies: eye pain Respiratory: Reports: as per HPI, cough Cardiovascular: Denies: chest pain Endocrine: Denies: fatigue Gastrointestinal: Denies: abdominal pain Musculoskeletal: Reports: as per HPI Past Medical History Past Medical History: COPD, Dementia, Hyperlipidemia, Hypertension, Memory Impairment Additional Past Medical History / Comment(s): Hx of falls, Hx of shoulder fracture, macular degeneration History of Any Multi-Drug Resistant Organisms: None Reported Past Surgical History: Appendectomy, Cholecystectomy, Hysterectomy Past Anesthesia/Blood Transfusion Reactions: No Reported Reaction Past Psychological History: No Psychological Hx Reported Smoking Status: Former smoker Past Alcohol Use History: Unable to Obtain Past Drug Use History: Unable to Obtain - Past Family History Father Family Medical History: Cancer, Myocardial Infarction (LA) Mother Family Medical History: Osteoarthritis (OA) General Exam Limitations: no limitations General appearance: alert, in no apparent distress Head exam: Present: atraumatic, normocephalic Eye exam: Present: normal appearance, PERRL, EOMI Neck exam: Present: normal inspection. Absent: tenderness Respiratory exam: Present: normal lung sounds bilaterally Cardiovascular Exam: Present: regular rate, normal rhythm GI/Abdominal exam: Present: soft. Absent: tenderness Extremities exam: Present: tenderness (Tenderness and mild swelling left lower knee. Limited range of motion at the knee. Distally the extremity is neurovascular intact.), other (Left hip without tenderness or pain with range of motion) Neurological exam: Present: alert. Absent: motor sensory deficit Psychiatric exam: Present: normal affect, normal mood Skin exam: Present: normal color Course Vital Signs 01/11/24 16:06 Temperature 99.9 F H Pulse Rate 69 Respiratory 18 Rate Blood Pressure 156/73 O2 Sat by Pulse 97 Oximetry Medical Decision Making - Medical Decision Making Was pt. sent in by a medical professional or institution (, PA, BUSINESS CONTINUITY GLOBAL DIRECTOR, urgent care, hospital, or [facility]...) When possible be specific @ -Patient was sent in by nursing Did you speak to anyone other than the patient for history (EMS, parent, family, police, friend...)? What history was obtained from this source @ -Daughter helps provide history as patient is a poor historian Did you review nursing and triage notes (agree or disagree)? Why? @ -I reviewed and agree with nursing and triage notes Were old charts reviewed (outside hosp., previous admission, EMS record, old E KG, old radiological studies, urgent care reports/EKG's, [facility] records)? Report findings @ -Previous admission reviewed. Transfer sheet is reviewed Differential Diagnosis (chest pain, altered mental status, abdominal pain women, abdominal pain men, vaginal bleeding, weakness, fever, dyspnea, syncope, headache, dizziness, GI bleed, back pain, seizure, CVA, palpatations, mental health, musculoskeletal)? @ -Differential Musculoskeletal Muscular strain, contusion, ligament sprain, fracture, arthritis, septic arthritis, bursitis, cellulitis, muscle spasm, nerve compression, DVT, arterial occlusion, herpes zoster, electrolyte abnormality, tumor.... This is not meant to be in all inclusive list EKG interpreted by me (3pts min.). @ -As above X-rays interpreted by me (1pt min.). @ -None done CT interpreted by me (1pt min.). @ -Tibial plateau fracture U/S interpreted by me (1pt. min.). @ -None done What testing was considered but not performed or refused? (CT, X-rays, U/S, labs)? Why? @ -None What meds were considered but not given or refused? Why? @ -None Did you discuss the management of the patient with other professionals (professionals i.e. DrElsa, PA, BUSINESS CONTINUITY GLOBAL DIRECTOR, lab, RT, psych nurse, social media analyst, seam stayer, teacher, staff air tactical officer, case making machine operator)? Give summary @ -Discussed with Shamar Grande who recommends knee immobilizer and discharge and follow-up in the office Was smoking cessation discussed for >3mins.? @ -No Was critical care preformed (if so, how long)? @ -No Were there social determinants of health that impacted care today? How? (Homelessness, low income, unemployed, alcoholism, drug addiction, transportation, low edu. Level, literacy, decrease access to med. care, detention, rehab)? @ -No Was there de-escalation of care discussed even if they declined (Discuss DNR or withdrawal of care, Hospice)? DNR status @ -No What co-morbidities impacted this encounter? (DM, HTN, Smoking, COPD, CAD, Cancer, CVA, ARF, Chemo, Hep., AIDS, mental health diagnosis, sleep apnea, morbid obesity)? @ -Recent hip fracture. Current COVID-19 infection Was patient admitted / discharged? Hospital course, mention meds given and route, prescriptions, significant lab abnormalities, going to OR and other pertinent info. @ -Patient and family updated on results and need for follow-up. In addition also spoke with physician who is also a family member. They will demonstrate understanding Undiagnosed new problem with uncertain prognosis? @ -No Drug Therapy requiring intensive monitoring for toxicity (Heparin, Nitro, Insulin, Cardizem)? @ -No Were any procedures done? @ -No Diagnosis/symptom? @ -Left tibial plateau fracture Acute, or Chronic, or Acute on Chronic? @ -Acute Uncomplicated (without systemic symptoms) or Complicated (systemic symptoms)? @ -Default Side effects of treatment? @ -No Exacerbation, Progression, or Severe Exacerbation? @ -No Poses a threat to life or bodily function? How? (Chest pain, [place], LA, pneumonia, PE, COPD, DKA, ARF, appy, cholecystitis, CVA, Diverticulitis, Homicidal, Suicidal, threat to staff... and all critical care pts) @ -No Disposition Clinical Impression: Tibial plateau fracture, left Disposition: HOME SELF-CARE Condition: Stable Instructions (If sedation given, give patient instructions): Leg Fracture (ED), Fall Prevention for Older Adults (ED) Additional Instructions: Please follow-up with Dr. Grande this week. Use knee immobilizer at all times. Ice to affected area. No weightbearing until released by orthopedics. Return for leg problems, worsening or change in symptoms, difficulty breathing or other concerns. Is patient prescribed a controlled substance at d/c from ED?: No Referrals: Ying Thomason NPC [Primary Care Provider] - 1-2 days Samuel Grande DO [Doctor of Osteopathic Medicine] - 1-2 days Time of Disposition: 19:06
--- NOTE | 2024-01-11 17:55 | CT ---
EXAMINATION TYPE: CT knee LT wo con DATE OF EXAM: 01/11/2024 COMPARISON: None HISTORY: Fall. Tibial plateau fx CT DLP: 102.5 mGycm Automated exposure control for dose reduction was used. FINDINGS: There is diffuse osteopenia. There is a comminuted slightly depressed fracture of the lateral tibial plateau. No other fractures are seen. There are no focal intraosseous abnormalities. There is a moderate joint effusion. There is no radiopaque foreign body or abnormal soft tissue calcification. IMPRESSION: Lateral tibial plateau fracture with moderate joint effusion is identified. IMPRESSION:
[2024-01-11 20:22] VITALS: BP 145/67; PULSE 67; RESP 16
== END 2024-01-11 20:16 | disposition home or self-care (01) ==
LOC: EC 16:04
DX: S82.142A Displaced bicondylar fracture of left tibia, initial encounter for closed fracture (principal); J44.9 Chronic obstructive pulmonary disease, unspecified; I10 Essential (primary) hypertension; E78.5 Hyperlipidemia, unspecified; Z79.82 Long term (current) use of aspirin; Z79.899 Other long term (current) drug therapy; Z88.2 Allergy status to sulfonamides; Z87.891 Personal history of nicotine dependence; W06.XXXA Fall from bed, initial encounter
CPT/HCPCS: 99285